=== PATIENT | male | born 1945 | race Caucasian/White ===

== ENCOUNTER 2018-01-03 02:42 | Inpatient (IN) | payer MEDICARE ==
[2018-01-03] VITALS (7 sets, daily range): BP systolic 138–164; BP diastolic 61–82
[~2018-01-03] VITALS: Ht 180.3 cm; Wt 88.5 kg
--- NOTE | ~2018-01-03 | EKG ---
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
--- NOTE | ~2018-01-03 | ST ---
[place], [place] EXERCISE STRESS TEST REPORT [id number] UNIT #: [id number] ROOM: 506 DOCTOR: MCKAYLA PALOMARES MD BIRTHDATE: [birth year] DOS: 01/10/2018 LEXISCAN STRESS EKG REFERRING PHYSICIAN: Dr. Doll. INDICATIONS: Ventricular tachycardia. Baseline EKG is normal sinus with nonspecific ST-T wave changes, diffusely to be inverted T waves. The patient had baseline heart rate of 60 with a blood pressure of 140/80. The patient's peak heart rate was 75 with a blood pressure of 128/80. The patient had no chest pain, no dyspnea, ischemic changes and no arrhythmias were noted. SUMMARY OF FINDINGS: Unremarkable Lexiscan stress EKG. MCKAYLA PALOMARES MD CM:STRESS:EXERCISE STRESS TEST REPORT [id number] MCKAYLA PALOMARES MD
--- NOTE | ~2018-01-03 | CON ---
[place], [place] REPORT OF CONSULTATION NAME: EDIS ARANGO UNIT #: [id number] ROOM: 506 DOCTOR: CALEB MATHUR MD BIRTHDATE: [birth year] DOS: 01/08/2018 REASON FOR CONSULTATION: Ventricular tachycardia. CLINICAL HISTORY: The patient is a 72-year-old gentleman with history of hypertension, tobacco smoking and COPD who was admitted ____ shortness of breath and cough with sputum production. ____ with diagnosis of pneumonia and he was found to have ventricular tachycardia on 01/03/2018 and 01/04/2018. The patient is asymptomatic and Cardiology was consulted for further recommendations. The patient likely has history of noncompliance in the past. He follows with most of the [facility]. He denies any chest pain or palpitations. He only complains of shortness of breath. He still smokes 1 pack a day. Patient has chronic psoriasis, which response to the steroids. Currently, his breathing is better with the current therapy. Denies any chest pain, palpitation or dizziness. No fever or chills. No nausea, vomiting or diarrhea. No orthopnea or PND. No neurologic symptoms. No musculoskeletal symptoms. REVIEW OF SYSTEMS: Review of the 10 system negative except as mentioned above. PAST MEDICAL HISTORY: 1. Hypertension. 2. Psoriasis. 3. Edema. 4. BPH. PAST SURGICAL HISTORY: No significant surgeries. SOCIAL HISTORY: The patient does smoke about a pack a day, does not use alcohol or illicit drugs. FAMILY HISTORY: Father has melanoma. Mother has breast cancer, diabetes. ALLERGIES: No known drug allergies. HOME MEDICATIONS: Reviewed. PHYSICAL EXAMINATION: VITAL SIGNS: Blood pressure 145/83, pulse 70, respiratory rate of 18 and weight 88.4 kilos with a BMI 27.2. GENERAL: Alert, comfortable, in no acute distress. NECK: Supple, no distended neck veins, no carotid bruit. CHEST: Symmetrical, nontender. LUNGS: Few scattered rhonchi. Good air entry bilaterally. HEART: Regular rhythm, no S3. Grade 1/6 systolic murmur. ABDOMEN: Benign, nontender. Bowel sounds normal. EXTREMITIES: Showed 1+ edema. Distal pulses palpable. SKIN: Warm and dry. The patient had multiple psoriatic rash. NEUROLOGIC: The patient is alert, oriented. No focal neurologic deficit. RECTAL: Deferred. GENITOURINARY: Deferred. [place], [place] REPORT OF CONSULTATION NAME: EDIS ARANGO UNIT #: [id number] ROOM: 506 DOCTOR: CALEB MATHUR MD BIRTHDATE: [birth year] REVIEW OF THE DIAGNOSTIC TESTS: EKG showed normal sinus rhythm with anterolateral T inversion. His labs and imaging studies reviewed. White cell count 32293, hemoglobin 15 and platelets 356,000. BUN 38, creatinine 0.96, potassium 3.9. No BNP done. The rhythm strips showed the patient has ____ on 01/03/2018 and a 12-beat nonsustained V-tach on 01/04/2018. IMPRESSION: 1. Nonsustained ventricular tachycardia. 2. Hypertension. 3. Tobacco use. 4. Pneumonia and possible sepsis. 5. Chronic edema. 6. Psoriasis. 7. Abnormal EKG with anterolateral ST-T changes. 8. Acute on chronic respiratory failure. RECOMMENDATIONS: He denies any chest pain. The patient is on metoprolol 25 mg twice a day and the patient had refused to keep his previous medications except today he took his metoprolol. Importance of medications with beta blockers discussed and the patient agreeable to continue take his metoprolol. His magnesium levels are 2.1 on 01/04/2018. Check 2D echo for LV function and valvular function. The patient said he had echo about 6 months ago at [facility] in [place]. We will try to get the report. We would recommend Lexiscan stress test on Wednesday to rule out ischemia due to his nonsustained V-tach and also CAD risk factors. The patient was counseled to quit smoking and the patient was not happy and as stated to discuss his smoking cessation. He will need home oxygen since his O2 saturations are below 90 on acuity. No family at bedside. Continue his current medications include Lasix, Lipitor and metoprolol. Further recommendation based on his echo and a stress test. [place], [place] REPORT OF CONSULTATION NAME: EDIS ARANGO UNIT #: [id number] ROOM: 506 DOCTOR: CALEB MATHUR MD BIRTHDATE: [birth year] CALEB MATHUR MD CM:CONSTR:REPORT OF CONSULTATION 14 01/09/182034 interface
--- NOTE | ~2018-01-03 | EKG ---
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 : 1945 Requested By: VALDEMAR HARRELL Order Number: [id number] Reading MD: Symone Garcia MD Measurements Intervals [place] Rate: 77 P: 85 MT: 117 QRS: 16 QRSD: 104 T: 143 QT: 449 QTc: 509 Interpretive Statements Sinus rhythm Borderline short [place] interval Abnormal R-wave progression, early transition Abnrm T, consider ischemia, anterolateral leads Prolonged QT interval Compared to ECG 01/03/2018 02:54:16 Prolonged QT interval now present Possible ischemia still present Electronically Signed On 01-04-2018 16:07:18 PST by Symone Garcia MD CM:EKGRPT:ELECTROCARDIOGRAM REPORT 1723 1607 VALDEMAR KHAN DRAFT REPORT VALDEMAR HARRELL DO
--- NOTE | ~2018-01-03 | PR ---
[place], [place] PROGRESS NOTE NAME: EDIS ARANGO UNIT #: [id number] ROOM: 506 DOCTOR: CALEB MATHUR MD BIRTHDATE: [birth year] DOS: 01/09/2018 REASON FOR VISIT: Ventricular tachycardia. HISTORY OF PRESENT ILLNESS: The patient denies any chest pain or shortness of breath. No palpitation, no dizziness, no edema, no orthopnea, no PND, no fever and chills. REVIEW OF SYSTEMS: Review of the 10 system negative except as mentioned above. RHYTHM STRIPS: The patient in sinus rhythm. PHYSICAL EXAMINATION: VITAL SIGNS: Blood pressure 130/76, pulse 70, respiratory rate 18, weight 88.4 kilos with a BMI of 27. GENERAL: Alert, comfortable, in no acute distress. NECK: Supple, no distended neck veins, no carotid bruit. CHEST: Symmetrical, nontender. LUNGS: Few scattered rhonchi. Good air entry bilaterally. HEART: Regular rate and rhythm, no S3. Grade 1/6 systolic murmur. ABDOMEN: Benign, nontender. Bowel sounds normal. EXTREMITIES: Showed trace edema. Distal pulses palpable. SKIN: Warm and dry. No cyanosis, no clubbing. RECTAL: Deferred. GENITORECTAL: Deferred. Other medications and labs reviewed. IMPRESSIONS: 1. Ventricular tachycardia, asymptomatic, no further recurrence, normal magnesium levels. 2. Tobacco smoking. 3. Hypertension. 4. Non-morbid obesity. 5. Pneumonia. 6. Chronic obstructive pulmonary disease. 7. Psoriasis. RECOMMENDATIONS: Continue current medication. Lexiscan stress test tomorrow to rule out ischemia due to his ventricular tachycardia and CAD risk factors. A 2D echo was ordered and apparently had echo done at [facility] about 6 months ago and reported request. Risk factor modification to quit smoking, diet, exercise and weight loss discussed. No family at bedside at the time of examination. [place], [place] PROGRESS NOTE NAME: EDIS ARANGO UNIT #: [id number] ROOM: 506 DOCTOR: CALEB MATHUR MD BIRTHDATE: [birth year] CALEB MATHUR MD CM:PNTRANS 16 06 CALEB MATHUR MD 01/09/182107 interface
[2018-01-03 03:04] LABS: HEMOGLOBIN 14.4 g/dl (14.0-18.0); MEAN CELL VOLUME 95.5 fl (80.0-94.0); MEAN CORPUSCULAR HGB 30.6 pg (27.0-31.0); MEAN PLATELET VOLUME 9.9 fl (9.6-12.3); PLATELET COUNT AUTOMATED 302 10*3/uL (130-400); RED BLOOD COUNT 4.71 10*6/uL (4.50-5.90); RED CELL DISTRI WIDTH 13.4 % (0-14.5); WHITE BLOOD COUNT 24.2 10*3/uL (4.8-10.8)
[2018-01-03 03:14] LABS: INTERNATIONAL NORM RATIO 1.2 (2.0-3.5)
[2018-01-03 03:21] LABS: ALBUMIN 2.8 gm/dl (3.1-4.5); ALKALINE PHOSPHATASE 87 U/L (45-117); BUN 14 mg/dl (7-24); CHLORIDE 103 mmol/L (98-107); CREATININE 0.92 mg/dL (0.70-1.30); POTASSIUM 3.8 mmol/L (3.5-5.1); SGOT/AST 13 IU/L (3-35); SGPT/ALT 16 U/L (12-78); SODIUM 139 mmol/L (136-145); TOTAL PROTEIN 8.3 gm/dL (6.4-8.2)
[2018-01-03 03:23] LABS: PLATELET SUFFICIENCY NORMAL (NORMAL); TOTAL CELLS COUNTED 100 #CELLS
[2018-01-03 04:40] LABS: BILIRUBIN 2+ (NEGATIVE); BLOOD 3+ (NEGATIVE); CLARITY CLEAR (CLEAR); COLOR YELLOW (YELLOW); GLUCOSE NEGATIVE (NEGATIVE); KETONE NEGATIVE (NEGATIVE); LEUKO ESTERASE NEGATIVE (NEGATIVE); NITRITE NEGATIVE (NEGATIVE); SPECIFIC GRAVITY >= 1.030 (1.005-1.030); UROBILINOGEN 0.2 E.U./dl (0.2-1.0)
[2018-01-03 04:50] LABS: RBC 16-20 rbc/hpf (0-2)
[2018-01-03] MEDS ORDERED: ACCUNEB 0.1.25 MG/1 INH (10:01)
[2018-01-03] MEDS ORDERED: ALBUTEROL S5 MG/1 ML INH (10:02)
[2018-01-03] MEDS ORDERED: ALENDRONATE SOD35 M1 PO (10:02)
[2018-01-03] MEDS ORDERED: AMMONIUM LACTA385 GM T (10:02)
[2018-01-03] MEDS ORDERED: OTEZLA30 MG PO (10:03)
[2018-01-03] MEDS ORDERED: LIPITOR10 MG PO (10:03)
[2018-01-03] MEDS ORDERED: SYMB160 INH (10:03)
[2018-01-03] MEDS ORDERED: CLOBETASOL EMOL15 GM T (10:04)
[2018-01-03] MEDS ORDERED: VITAMIN D31000 UNI1 PO (10:04)
[2018-01-03] MEDS ORDERED: IBUPROFEN600 MG PO (10:05)
[2018-01-03] MEDS ORDERED: NEURONTIN300 MG PO (10:05)
[2018-01-03] MEDS ORDERED: COL-RITE100 M1 PO (10:05)
[2018-01-03] MEDS ORDERED: LASIX20 MG PO (10:05)
[2018-01-03] MEDS ORDERED: POTASSIUM CHLO10 MEQ PO (10:06)
[2018-01-03] MEDS ORDERED: ACULAR 0.5%3 ML OPH (10:06)
[2018-01-03] MEDS ORDERED: TAMSULOSIN HCL0.4 MG PO (10:07)
[2018-01-03] MEDS ORDERED: VIGAMOX 0.5% 3 M3 ML OPH (10:08)
[2018-01-03] MEDS ORDERED: ECONOPRED PLUS10 M1 OPH (10:09)
[2018-01-03 18:12] LABS: BUN 16 mg/dl (7-24); CHLORIDE 106 mmol/L (98-107); CREATININE 0.91 mg/dL (0.70-1.30); POTASSIUM 4.4 mmol/L (3.5-5.1); SODIUM 139 mmol/L (136-145); TROPONIN I 0.018 ng/ml (<0.045)
[2018-01-04] VITALS: BP 149/81
[2018-01-04 06:50] LABS: BASO % 0.1 % (0.0-1.0); HEMATOCRIT 42.1 % (42.0-52.0); HEMOGLOBIN 13.2 g/dl (14.0-18.0); LYMPH # 1.5 10*3/uL (1.3-4.4); LYMPH % 7.4 % (27.0-41.0); MEAN CELL VOLUME 97.7 fl (80.0-94.0); MEAN CORPUSCULAR HGB 30.6 pg (27.0-31.0); MEAN CORPUSCULAR HGB CONC 31.4 g/dl (33.0-37.0); MEAN PLATELET VOLUME 10.6 fl (9.6-12.3); MONO # 0.8 10*3/uL (0.1-1.0); MONO % 3.9 % (3.0-9.0); PLATELET COUNT AUTOMATED 302 10*3/uL (130-400); RED BLOOD COUNT 4.31 10*6/uL (4.50-5.90); RED CELL DISTRI WIDTH 13.2 % (0-14.5); WHITE BLOOD COUNT 20.4 10*3/uL (4.8-10.8)
[2018-01-04 06:51] LABS: BUN 20 mg/dl (7-24); CHLORIDE 105 mmol/L (98-107); CHOLESTEROL 171 mg/dL (<200); CREATININE 0.89 mg/dL (0.70-1.30); HDL CHOLESTEROL 39 mg/dl (40-60); LDL CHOLESTEROL 110 mg/dL (9-159); PHOSPHOROUS 2.6 mg/dL (2.5-4.9); POTASSIUM 4.4 mmol/L (3.5-5.1); SODIUM 139 mmol/L (136-145); TRIGLYCERIDES 111 mg/dl (<150); VLDL CHOLESTEROL 22 mg/dL (6-40)
[2018-01-04 06:58] LABS: THYROID STIM HORMONE (HS) 0.456 uIU/ml (0.358-4.75)
[2018-01-04 08:00] VITALS: BP 136/80
[2018-01-04 09:05] LABS: VITAMIN D, 25-HYDROXY 20.4 ng/mL (30-100)
[2018-01-04 12:00] VITALS: BP 147/83
[2018-01-04 16:00] VITALS: BP 111/66
[2018-01-04 20:00] VITALS: BP 103/62
[2018-01-05] VITALS: BP 124/69
[2018-01-05 06:43] LABS: BASO % 0.1 % (0.0-1.0); HEMATOCRIT 42.5 % (42.0-52.0); HEMOGLOBIN 13.1 g/dl (14.0-18.0); LYMPH # 1.3 10*3/uL (1.3-4.4); MEAN CELL VOLUME 98.6 fl (80.0-94.0); MEAN CORPUSCULAR HGB 30.4 pg (27.0-31.0); MEAN CORPUSCULAR HGB CONC 30.8 g/dl (33.0-37.0); MEAN PLATELET VOLUME 10.5 fl (9.6-12.3); MONO # 0.5 10*3/uL (0.1-1.0); MONO % 3.7 % (3.0-9.0); NEUT # 12.8 10*3/uL (2.3-7.9); NEUT % 86.5 % (47.0-73.0); PLATELET COUNT AUTOMATED 309 10*3/uL (130-400); RED BLOOD COUNT 4.31 10*6/uL (4.50-5.90); WHITE BLOOD COUNT 14.8 10*3/uL (4.8-10.8)
[2018-01-05 07:04] LABS: ALBUMIN 2.5 gm/dl (3.1-4.5); ALKALINE PHOSPHATASE 83 U/L (45-117); BUN 26 mg/dl (7-24); CHLORIDE 104 mmol/L (98-107); CREATININE 0.95 mg/dL (0.70-1.30); POTASSIUM 4.1 mmol/L (3.5-5.1); SGOT/AST 14 IU/L (3-35); SGPT/ALT 17 U/L (12-78); SODIUM 139 mmol/L (136-145); TOTAL PROTEIN 7.1 gm/dL (6.4-8.2)
[2018-01-05 12:00] VITALS: BP 127/67
[2018-01-05 16:00] VITALS: BP 145/69
[2018-01-05 20:00] VITALS: BP 142/78
[2018-01-06] VITALS: BP 116/57
[2018-01-06 06:35] LABS: BASO % 0.2 % (0.0-1.0); EOS % 0.1 % (1.0-4.0); HEMOGLOBIN 13.2 g/dl (14.0-18.0); LYMPH # 1.2 10*3/uL (1.3-4.4); LYMPH % 9.6 % (27.0-41.0); MEAN CELL VOLUME 97.4 fl (80.0-94.0); MEAN CORPUSCULAR HGB 30.6 pg (27.0-31.0); MEAN CORPUSCULAR HGB CONC 31.4 g/dl (33.0-37.0); MEAN PLATELET VOLUME 10.6 fl (9.6-12.3); MONO # 0.6 10*3/uL (0.1-1.0); MONO % 4.9 % (3.0-9.0); NEUT # 10.3 10*3/uL (2.3-7.9); NEUT % 83.9 % (47.0-73.0); PLATELET COUNT AUTOMATED 300 10*3/uL (130-400); RED BLOOD COUNT 4.31 10*6/uL (4.50-5.90); RED CELL DISTRI WIDTH 12.7 % (0-14.5); WHITE BLOOD COUNT 12.3 10*3/uL (4.8-10.8)
[2018-01-06 06:53] LABS: BUN 26 mg/dl (7-24); CHLORIDE 103 mmol/L (98-107); CREATININE 0.89 mg/dL (0.70-1.30); POTASSIUM 3.9 mmol/L (3.5-5.1); SODIUM 142 mmol/L (136-145)
[2018-01-06 08:00] VITALS: BP 120/62
[2018-01-06 12:00] VITALS: BP 126/64
[2018-01-06 16:00] VITALS: BP 130/61
[2018-01-06 20:00] VITALS: BP 172/89
[2018-01-07] VITALS: BP 172/84
[2018-01-07 06:48] LABS: HEMATOCRIT 45.4 % (42.0-52.0); HEMOGLOBIN 14.5 g/dl (14.0-18.0); MEAN CELL VOLUME 95.4 fl (80.0-94.0); MEAN CORPUSCULAR HGB 30.5 pg (27.0-31.0); MEAN CORPUSCULAR HGB CONC 31.9 g/dl (33.0-37.0); MEAN PLATELET VOLUME 10.2 fl (9.6-12.3); PLATELET COUNT AUTOMATED 348 10*3/uL (130-400); RED BLOOD COUNT 4.76 10*6/uL (4.50-5.90); RED CELL DISTRI WIDTH 12.6 % (0-14.5); WHITE BLOOD COUNT 17.2 10*3/uL (4.8-10.8)
[2018-01-07 06:57] LABS: CHLORIDE 103 mmol/L (98-107); CREATININE 0.89 mg/dL (0.70-1.30); POTASSIUM 4.1 mmol/L (3.5-5.1); SODIUM 140 mmol/L (136-145)
[2018-01-07 06:58] LABS: BUN 23 mg/dl (7-24)
[2018-01-07 07:13] LABS: PLATELET SUFFICIENCY NORMAL (NORMAL); TOTAL CELLS COUNTED 100 #CELLS
[2018-01-07 09:30] VITALS: BP 142/74
[2018-01-07 12:00] VITALS: BP 152/79
[2018-01-07 16:00] VITALS: BP 156/83
[2018-01-07 20:00] VITALS: BP 140/82
[2018-01-08 06:21] LABS: HEMATOCRIT 46.5 % (42.0-52.0); MEAN CELL VOLUME 95.1 fl (80.0-94.0); MEAN CORPUSCULAR HGB 30.7 pg (27.0-31.0); MEAN CORPUSCULAR HGB CONC 32.3 g/dl (33.0-37.0); MEAN PLATELET VOLUME 10.4 fl (9.6-12.3); PLATELET COUNT AUTOMATED 356 10*3/uL (130-400); RED BLOOD COUNT 4.89 10*6/uL (4.50-5.90); RED CELL DISTRI WIDTH 12.7 % (0-14.5); WHITE BLOOD COUNT 21.6 10*3/uL (4.8-10.8)
[2018-01-08 06:47] LABS: BUN 28 mg/dl (7-24); CHLORIDE 99 mmol/L (98-107); CREATININE 0.96 mg/dL (0.70-1.30); POTASSIUM 3.9 mmol/L (3.5-5.1); SODIUM 138 mmol/L (136-145)
[2018-01-08 06:59] LABS: ATYPICAL LYMPHS 1 % (0-0); TOTAL CELLS COUNTED 100 #CELLS
[2018-01-08 07:00] LABS: PLATELET SUFFICIENCY NORMAL (NORMAL)
[2018-01-08 08:00] VITALS: BP 156/87
[2018-01-08 12:00] VITALS: BP 144/83
[2018-01-08 16:00] VITALS: BP 169/81
[2018-01-08 20:00] VITALS: BP 141/88
[2018-01-09] VITALS: BP 131/65
[2018-01-09 08:00] VITALS: BP 138/62
[2018-01-09 12:00] VITALS: BP 130/76
[2018-01-09 16:00] VITALS: BP 146/71
[2018-01-09 20:00] VITALS: BP 132/72
[2018-01-10] VITALS: BP 122/61
[2018-01-10 08:00] VITALS: BP 147/82
[2018-01-10 12:00] VITALS: BP 156/82
[2018-01-10 16:00] VITALS: BP 106/59
[2018-01-10 20:00] VITALS: BP 110/76
[2018-01-11] VITALS: BP 134/56
[2018-01-11 06:41] LABS: MEAN CELL VOLUME 96.3 fl (80.0-94.0); MEAN CORPUSCULAR HGB 30.7 pg (27.0-31.0); MEAN CORPUSCULAR HGB CONC 31.9 g/dl (33.0-37.0); MEAN PLATELET VOLUME 9.9 fl (9.6-12.3); PLATELET COUNT AUTOMATED 311 10*3/uL (130-400); RED BLOOD COUNT 4.88 10*6/uL (4.50-5.90); RED CELL DISTRI WIDTH 13.2 % (0-14.5); WHITE BLOOD COUNT 16.6 10*3/uL (4.8-10.8)
[2018-01-11 06:48] LABS: CREATININE 0.95 mg/dL (0.70-1.30)
[2018-01-11 07:21] LABS: ATYPICAL LYMPHS 5 % (0-0); PLATELET SUFFICIENCY NORMAL (NORMAL); TOTAL CELLS COUNTED 100 #CELLS
[2018-01-11] MEDS ORDERED: FLUCONAZOLE100 MG PO (11:47)
[2018-01-11] MEDS ORDERED: DOXYCYCLINE MO100 M1 PO (11:47)
[2018-01-11] MEDS ORDERED: METOPROLOL SUCC25 M2 PO (11:47)
[2018-01-11] MEDS ORDERED: NATURE'S BLEND F1 MG PO (11:47)
[2018-01-11] MEDS ORDERED: PREDNISONE10 MG PO (11:48)
[2018-01-11] MEDS ORDERED: OXYGEN NAS (11:48)
[2018-01-11 12:00] VITALS: BP 111/57
== END 2018-01-11 16:56 | disposition left against medical advice (07) | DRG 871 ==
LOC: ED 02:42 → EDHOLD 05:50 → 5E 05:50 → EDBEDREQ 06:10 → 5E 06:10
PROVIDERS: Emergency Medicine; Internal Medicine; Podiatrist Primary Podiatric Medicine; Student in an Organized Health Care Education/Training Program
DX: A41.9 Sepsis, unspecified organism (principal); J18.9 Pneumonia, unspecified organism; E43 Unspecified severe protein-calorie malnutrition; J96.20 Acute and chronic respiratory failure, unspecified whether with hypoxia or hypercapnia; E87.2 Acidosis; I47.2 Ventricular tachycardia; R65.20 Severe sepsis without septic shock; F17.210 Nicotine dependence, cigarettes, uncomplicated; J43.9 Emphysema, unspecified; H26.9 Unspecified cataract; B96.20 Unspecified Escherichia coli [E. coli] as the cause of diseases classified elsewhere; L40.0 Psoriasis vulgaris; R33.9 Retention of urine, unspecified; N40.1 Benign prostatic hyperplasia with lower urinary tract symptoms; I11.9 Hypertensive heart disease without heart failure; R31.9 Hematuria, unspecified; E66.01 Morbid (severe) obesity due to excess calories; R73.9 Hyperglycemia, unspecified; G62.9 Polyneuropathy, unspecified; R39.16 Straining to void; Z53.29 Procedure and treatment not carried out because of patient's decision for other reasons; Z79.899 Other long term (current) drug therapy; Z83.3 Family history of diabetes mellitus; Z80.3 Family history of malignant neoplasm of breast; Z80.8 Family history of malignant neoplasm of other organs or systems; Z71.6 Tobacco abuse counseling; Z68.27 Body mass index [BMI] 27.0-27.9, adult

== ENCOUNTER 2018-02-21 14:39 | Inpatient (IN) | payer MEDICARE ==
[~2018-02-21] VITALS: Ht 180.3 cm; Wt 87.8 kg
--- NOTE | ~2018-02-21 | EKG ---
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 : 1945 Requested By: JACK ROMANO Order Number: [id number] Reading MD: Wayne Márquez MD Measurements Intervals [place] Rate: 71 P: 63 GA: 117 QRS: 7 QRSD: 101 T: 145 QT: 437 QTc: 475 Interpretive Statements Atrial fibrillation, irregular rate Borderline short [place] interval Abnormal R-wave progression, early transition Repol abnrm, prob ischemia, anterolateral lds Baseline wander in lead(s) V1,V3 Sinus rhythm has replaced atrial fibrillation Electronically Signed On 02-23-2018 10:32:52 PST by Wayne Márquez MD CM:EKGRPT:ELECTROCARDIOGRAM REPORT 0713 1032 JACK KHAN DRAFT REPORT JACK ROMANO DO
--- NOTE | ~2018-02-21 | EKG ---
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 Banegas : 1945 Requested By: KENDALL APPIAH Order Number: [id number] Reading MD: Wayne Márquez MD Measurements Intervals [place] Rate: 85 P: 13 TX: 116 QRS: 8 QRSD: 111 T: 131 QT: 418 QTc: 497 Interpretive Statements Sinus rhythm Borderline short [place] interval Abnormal R-wave progression, early transition Repol abnrm suggests ischemia, anterolateral Compared to ECG 01/03/2018 17:23:31 Prolonged QT interval no longer present Possible ischemia still present Electronically Signed On 02-22-2018 16:53:55 PST by Wayne Márquez MD CM:EKGRPT:ELECTROCARDIOGRAM REPORT 1501 1653 KENDALL WHITNEY DRAFT REPORT KENDALL APPIAH MD
--- NOTE | ~2018-02-21 | EKG ---
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 : 1945 Requested By: JACK ROMANO Order Number: [id number] Reading MD: Wayne Márquez MD Measurements Intervals [place] Rate: 81 P: 68 NH: 119 QRS: 23 QRSD: 100 T: 149 QT: 422 QTc: 490 Interpretive Statements Sinus rhythm Ventricular premature complex Borderline short [place] interval Abnormal R-wave progression, early transition Repol abnrm, prob ischemia, anterolateral lds Baseline wander in lead(s) V6 Compared to earlier ECG this date Normal sinus rhythm has replaced atrial fibrillation Electronically Signed On 02-23-2018 10:29:58 PST by Wayne Márquez MD CM:EKGRPT:ELECTROCARDIOGRAM REPORT 0425 1029 JACK KHAN DRAFT REPORT JACK ROMANO DO
--- NOTE | ~2018-02-21 | EKG ---
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
--- NOTE | ~2018-02-21 | EKG ---
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 Hayes : 1945 Requested By: STEVENSON PAREDES Order Number: [id number] Reading MD: Wayne Márquez MD Measurements Intervals [place] Rate: 73 P: 77 [place]: 118 QRS: 33 QRSD: 105 T: 145 QT: 423 QTc: 466 Interpretive Statements Sinus rhythm Borderline short [place] interval Abnormal R-wave progression, early transition Repol abnrm suggests ischemia, anterolateral Compared to ECG 02/21/2018 15:01:18 Possible ischemia still present Sinus rhythm has replaced atrial fibrillation Electronically Signed On 02-23-2018 11:07:37 PST by Wayne Márquez MD CM:EKGRPT:ELECTROCARDIOGRAM REPORT 0932 1107 STEVENSON KHAN DRAFT REPORT STEVENSON PAREDES DO
[~2018-02-21 14:39] MED LIST: ACCUNEB 0.1.25 MG/1 INH; ACULAR 0.5%3 ML OPH; ALBUTEROL S5 MG/1 ML INH; ALENDRONATE SOD35 M1 PO; AMMONIUM LACTA385 GM T; CLOBETASOL EMOL15 GM T; COL-RITE100 M1 PO; DOXYCYCLINE MO100 M1 PO; ECONOPRED PLUS10 M1 OPH; FLUCONAZOLE100 MG PO; IBUPROFEN600 MG PO; LASIX20 MG PO; LIPITOR10 MG PO; METOPROLOL SUCC25 M2 PO; NATURE'S BLEND F1 MG PO; NEURONTIN300 MG PO; OTEZLA30 MG PO; OXYGEN NAS; POTASSIUM CHLO10 MEQ PO; PREDNISONE10 MG PO; TAMSULOSIN HCL0.4 MG PO; VIGAMOX 0.5% 3 M3 ML OPH; VITAMIN D31000 UNI1 PO
[2018-02-21 14:42] VITALS: BP 145/78
[2018-02-21 15:13] LABS: BASO # 0.1 10*3/uL (0.0-0.1); BASO % 0.7 % (0.0-1.0); EOS # 0.2 10*3/uL (0.0-0.4); EOS % 1.8 % (1.0-4.0); HEMATOCRIT 43.9 % (42.0-52.0); HEMOGLOBIN 14.4 g/dl (14.0-18.0); LYMPH # 1.3 10*3/uL (1.3-4.4); LYMPH % 12.7 % (27.0-41.0); MEAN CELL VOLUME 95.4 fl (80.0-94.0); MEAN CORPUSCULAR HGB 31.3 pg (27.0-31.0); MEAN CORPUSCULAR HGB CONC 32.8 g/dl (33.0-37.0); MEAN PLATELET VOLUME 10.2 fl (9.6-12.3); MONO # 0.6 10*3/uL (0.1-1.0); MONO % 5.8 % (3.0-9.0); NEUT # 8.1 10*3/uL (2.3-7.9); NEUT % 78.5 % (47.0-73.0); PLATELET COUNT AUTOMATED 269 10*3/uL (130-400); RED CELL DISTRI WIDTH 14.2 % (0-14.5); WHITE BLOOD COUNT 10.3 10*3/uL (4.8-10.8)
[2018-02-21 15:22] VITALS: BP 150/78
[2018-02-21 15:34] LABS: ALBUMIN 2.8 gm/dl (3.1-4.5); ALKALINE PHOSPHATASE 84 U/L (45-117); BUN 17 mg/dl (7-24); CHLORIDE 107 mmol/L (98-107); CREATININE 0.95 mg/dL (0.70-1.30); POTASSIUM 3.5 mmol/L (3.5-5.1); SGOT/AST 16 IU/L (3-35); SGPT/ALT 21 U/L (12-78); SODIUM 145 mmol/L (136-145); TROPONIN I 0.029 ng/ml (<0.045)
[2018-02-21 15:56] LABS: ACT PARTIAL THROMBO TIME 21.1 SECONDS (20.8-31.5)
[2018-02-21 16:00] VITALS: BP 169/72
[2018-02-21 16:08] VITALS: BP 133/73
[2018-02-21 16:22] VITALS: BP 144/81
[2018-02-21] MEDS ORDERED: PROVENTIL HFA6.7 GM INH (17:42)
[2018-02-21] MEDS ORDERED: IBUPROFEN600 MG PO (17:42)
[2018-02-21 20:00] VITALS: BP 138/70; BP 89/70
[2018-02-21 21:58] LABS: BILIRUBIN NEGATIVE (NEGATIVE); BLOOD 3+ (NEGATIVE); CLARITY SL CLOUDY (CLEAR); COLOR YELLOW (YELLOW); GLUCOSE 1+ (NEGATIVE); KETONE NEGATIVE (NEGATIVE); LEUKO ESTERASE NEGATIVE (NEGATIVE); NITRITE NEGATIVE (NEGATIVE); PH 5.5 (5.0-9.0); SPECIFIC GRAVITY >= 1.030 (1.005-1.030); UROBILINOGEN 0.2 E.U./dl (0.2-1.0)
[2018-02-21 22:08] LABS: BACTERIA 2+; EPITHELIAL CELLS 0-2; MUCOUS TRACE; RBC TNTC rbc/hpf (0-2); YEAST TRACE
[2018-02-22] VITALS: BP 120/46; BP 120/60
[2018-02-22 07:01] LABS: BASO % 0.2 % (0.0-1.0); HEMATOCRIT 39.2 % (42.0-52.0); HEMOGLOBIN 12.7 g/dl (14.0-18.0); LYMPH # 0.7 10*3/uL (1.3-4.4); MEAN CELL VOLUME 95.6 fl (80.0-94.0); MEAN CORPUSCULAR HGB CONC 32.4 g/dl (33.0-37.0); MEAN PLATELET VOLUME 10.4 fl (9.6-12.3); MONO # 0.2 10*3/uL (0.1-1.0); MONO % 1.8 % (3.0-9.0); NEUT # 8.3 10*3/uL (2.3-7.9); NEUT % 89.6 % (47.0-73.0); PLATELET COUNT AUTOMATED 260 10*3/uL (130-400); WHITE BLOOD COUNT 9.3 10*3/uL (4.8-10.8)
[2018-02-22 07:10] LABS: ALBUMIN 2.4 gm/dl (3.1-4.5); ALKALINE PHOSPHATASE 73 U/L (45-117); BUN 16 mg/dl (7-24); CHLORIDE 107 mmol/L (98-107); CREATININE 0.96 mg/dL (0.70-1.30); PHOSPHOROUS 1.9 mg/dL (2.5-4.9); SGOT/AST 11 IU/L (3-35); SGPT/ALT 19 U/L (12-78); SODIUM 144 mmol/L (136-145); TOTAL PROTEIN 6.2 gm/dL (6.4-8.2)
[2018-02-22 07:16] LABS: THYROID STIM HORMONE (HS) 0.171 uIU/ml (0.358-4.75)
[2018-02-22 08:10] VITALS: BP 124/64
[2018-02-22 08:17] LABS: VITAMIN D, 25-HYDROXY 14.5 ng/mL (30-100)
[2018-02-22 12:00] VITALS: BP 122/71
[2018-02-22 16:00] VITALS: BP 118/62
[2018-02-22 20:00] VITALS: BP 116/47
[2018-02-22 22:00] VITALS: BP 116/47
[2018-02-23 04:18] VITALS: BP 152/87
[2018-02-23 06:02] LABS: BUN 22 mg/dl (7-24); CHLORIDE 108 mmol/L (98-107); CREATININE 0.92 mg/dL (0.70-1.30); PHOSPHOROUS 3.5 mg/dL (2.5-4.9); POTASSIUM 4.3 mmol/L (3.5-5.1); SODIUM 145 mmol/L (136-145)
[2018-02-23] MEDS ORDERED: NICODERM T (07:12)
[2018-02-23] MEDS ORDERED: AVPAK AZITHROM250 M1 PO (07:12)
[2018-02-23] MEDS ORDERED: SOLU-MEDRO40 MG/1 ML IV (07:12)
[2018-02-23 08:00] VITALS: BP 134/86
[2018-02-23 12:00] VITALS: BP 170/100
[2018-04-30] MEDS ORDERED: ELIQUIS2.5 M1 PO (05:32)
[2018-04-30] MEDS ORDERED: DILTIAZEM 24HR180 MG PO (05:33)
[2018-05-03] MEDS ORDERED: TRAMADOL HCL50 MG PO (09:19)
[2018-05-03] MEDS ORDERED: LASIX40 MG PO ×2 (09:19)
== END 2018-02-23 13:37 | disposition short-term general hospital (02) | DRG 871 ==
LOC: ED 14:39 → 5E 16:26 → EDHOLD 16:26 → 5E 16:35 → ICCU 02-23 04:13
PROVIDERS: Emergency Medicine; Student in an Organized Health Care Education/Training Program; ADMIT Internal Medicine
PROC: 3E073KZ Introduction of Other Diagnostic Substance into Coronary Artery, Percutaneous Approach (ICD-10-PCS; principal; 2018-02-23)
PROC: 4A02XM4 Measurement of Cardiac Total Activity, External Approach (ICD-10-PCS; principal; 2018-02-23)
DX: A41.9 Sepsis, unspecified organism (principal); J18.9 Pneumonia, unspecified organism; J96.01 Acute respiratory failure with hypoxia; E43 Unspecified severe protein-calorie malnutrition; J44.1 Chronic obstructive pulmonary disease with (acute) exacerbation; E87.2 Acidosis; J44.0 Chronic obstructive pulmonary disease with (acute) lower respiratory infection; I47.1 Supraventricular tachycardia; R65.20 Severe sepsis without septic shock; R73.9 Hyperglycemia, unspecified; D75.89 Other specified diseases of blood and blood-forming organs; Z71.6 Tobacco abuse counseling; H26.9 Unspecified cataract; G62.9 Polyneuropathy, unspecified; I11.9 Hypertensive heart disease without heart failure; K59.00 Constipation, unspecified; N40.0 Benign prostatic hyperplasia without lower urinary tract symptoms; L40.9 Psoriasis, unspecified; F17.210 Nicotine dependence, cigarettes, uncomplicated; Z79.899 Other long term (current) drug therapy; Z80.8 Family history of malignant neoplasm of other organs or systems; Z83.3 Family history of diabetes mellitus; Z68.26 Body mass index [BMI] 26.0-26.9, adult

== ENCOUNTER 2018-04-10 09:52 | Inpatient (IN) | payer MEDICARE ==
[~2018-04-10] VITALS: Ht 180.3 cm; Wt 90.0 kg
--- NOTE | ~2018-04-10 | EKG ---
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 : 1945 Requested By: JUAN ANTONIO PAREDES Order Number: [id number] Reading MD: Wil Knight MD Measurements Intervals [place] Rate: 82 P: 6 [place]: 120 QRS: 3 QRSD: 94 T: 103 QT: 405 QTc: 473 Interpretive Statements Sinus rhythm Abnormal R-wave progression, early transition Nonspecific T abnrm, anterolateral leads Baseline wander in lead(s) V6 Compared to ECG 02/23/2018 09:32:01 Early repolarization no longer present Possible ischemia no longer present Electronically Signed On 04-15-2018 9:36:30 PST by Wil Knight MD CM:EKGRPT:ELECTROCARDIOGRAM REPORT 1003 0936 JUAN ANTONIO KHAN DRAFT REPORT JUAN ANTONIO PAREDES DO
--- NOTE | ~2018-04-10 | PR ---
[place], [place] PROGRESS NOTE NAME: EDIS ARANGO UNIT #: [id number] ROOM: 405 DOCTOR: HAILEY GOSS MD BIRTHDATE: [birth year] DOS: 04/12/2018 SUBJECTIVE: He has been noted with reduction in symptoms of shortness of breath. The edema of the lower extremities also improving. There were no symptoms of chest pain, fever or chills. Denies symptoms of hemoptysis. Denies symptoms of nausea. OBJECTIVE: VITAL SIGNS: Normal temperature, respiratory rate 16, heart rate 73, blood pressure 150/70-130/63. The pulse oxygen saturation recorded as 95% saturation on 3 liters nasal cannula. HEENT: Examination shows head was atraumatic. Eyes nonicterus. NECK: Supple. CARDIOVASCULAR: S1, S2 audible. LUNGS: Noted with moderate reduction in breath sounds bilaterally. EXTREMITIES: Noted resolving edema of the lower extremities. LABORATORY DATA: CBC of this morning, WBC count 14.5, hemoglobin 13.2, platelet count was normal. CMP this morning, normal BUN and creatinine, glucose 241. IMPRESSION: 1. The patient who has been currently treated for acute exacerbation of chronic obstructive pulmonary disease. 2. Chronic hypoxic respiratory failure. 3. Congestive heart failure, diastolic dysfunction. 4. Psoriasis of the skin. 5. Long-term nicotine use. PLAN OF MANAGEMENT: The dose of steroids will be decreased. Influenza A and B, nasal washing antigen which were tested previously were noted negative. The viral panel was also ordered that remains pending. Diuretic therapy to be continued. Intake for the patient needs to be monitored closely. Other therapy, plan of management, care plan for the patient. Additional treatment changes will be made based on progression of illness. [place], [place] PROGRESS NOTE NAME: EDIS ARANGO UNIT #: [id number] ROOM: 405 DOCTOR: HAILEY GOSS MD BIRTHDATE: [birth year] HAILEY GUNDERSON MD CM:PNTRANS 1057 1444 HAILEY MACKENZIE MD 04/20/18 1014 interface
--- NOTE | ~2018-04-10 | EKG ---
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
--- NOTE | ~2018-04-10 | CON ---
[place], [place] REPORT OF CONSULTATION NAME: EDIS ARANGO UNIT #: [id number] ROOM: 405 DOCTOR: JUDAH PHD MARTHA BIRTHDATE: [birth year] DOS: 04/12/2018 HISTORY OF PRESENT ILLNESS: The patient is a 72-year-old male referred by the hospitalist for competency evaluation at the present time. The patient is on the 4th floor at [facility]. He is twice and has one son. He served in the [employer] for nearly 4 years during [employer], but did not go to [employer]. 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 He denied alcohol and illegal drug use, but is a current smoker with no intention of quitting. PAST MEDICAL HISTORY: BPH, cataracts, constipation, COPD, essential hypertension, macrocytosis without anemia, neuropathy, normocytic anemia, NSTEMI, peripheral edema, severe protein-calorie malnutrition, psoriasis, SVT. MEDICATIONS: Solu-Medrol, Colace, Neurontin, Lipitor, Pulmicort Respules, Ventolin, Colace, Flomax, Bumex, Lovenox, Protonix, Mucinex, DuoNeb, Zofran, Tylenol, Restoril, [place] 5/325. NEUROLOGIC EXAMINATION: The patient was awake, alert and oriented to person, place and generally to time. He can name the president and the past president. He could spell world forwards and backwards. He completed one correct serial 7 subtraction. Mood was irritable and affect was restricted in range. Speech and language appeared within normal limits conversationally. Thought process was linear and goal directed. Thought content was negative for hallucinations or delusions. The patient was able to speak in depths about his medical condition, medical history and reasons for declining medical treatment. He states that he feels upset about the amount of medications he is on, which he finds and he wants to only take ones he thinks are absolutely necessary. There was no evidence of confusion. He spoke about frustration with adjustment to disability issues. DIAGNOSIS: Unspecified depressive disorder. RECOMMENDATIONS: In my opinion, this patient is competent to make informed health care decisions. Thank you very much for this consult. Fabiola Gordon, PhD CM:CONSTR:REPORT OF CONSULTATION 1646 04/13/18 0614 interface
--- NOTE | ~2018-04-10 | PR ---
[place], [place] PROGRESS NOTE NAME: EDIS ARANGO UNIT #: [id number] ROOM: 405 DOCTOR: JALYN MACKENZIE MD,HAILEY BIRTHDATE: [birth year] DOS: 04/13/2018 PULMONARY PROGRESS NOTE SUBJECTIVE: He continues to show reduction of the respiratory symptom including edema of the lower extremities. Denies symptoms of chest pain. There was no coughing or any sputum expectoration. OBJECTIVE: VITAL SIGNS: For the patient which were recorded showed the temperature noted as normal. The respiratory rate recorded as 20, heart rate 81, blood pressure 151/80. Pulse oxygen saturation on 3 liters nasal cannula 94% saturation. HEENT: Examination shows head was atraumatic. Eyes nonicterus. NECK: Supple. CARDIOVASCULAR: S1, S2 is audible. LUNGS: Without any wheeze or crackles. ABDOMEN: Soft, nontender, bowel sounds present. EXTREMITIES: Continued progressive resolution of edema of upper and lower extremities. IMPRESSION: 1. Improving acute respiratory symptom with exacerbation of chronic obstructive pulmonary disease as well as congestive heart failure, progressive. 2. History of skin psoriasis which was noted extensive. PLAN OF MANAGEMENT: No changes in the plan for the patient at this time. Continuation of the current therapy for this patient as in progress. Usual care. Supportive plan of treatment. DISCHARGE PLANNING: The patient has been started on discharge on oral tapering prednisone and other medication as necessary post discharge. [facility]. HAILEY GUNDERSON MD CM:PNTRANS [id number] HAILEY MACKENZIE MD 04/14/18 005 interface
--- NOTE | ~2018-04-10 | EKG ---
[place], [place] ELECTROCARDIOGRAM REPORT NAME: EDIS ARANGO UNIT #: [id number] ROOM: 405 DOCTOR: CHELO DRAFT REPORT BIRTHDATE: [birth year] [facility] Test Date: 2018-04-10 Test Time: 12:36:15 Pat Name: EDIS ARANGO Department: Room: 405 Gender: M Entertainment Usher: Saloni Hess : 1945 Requested By: JUAN ANTONIO PAREDES Order Number: [id number] Reading MD: Wil Knight MD Measurements Intervals [place] Rate: 80 P: 64 VT: 122 QRS: -3 QRSD: 97 T: 97 QT: 445 QTc: 514 Interpretive Statements Sinus rhythm Abnormal R-wave progression, early transition Borderline repolarization abnormality Prolonged QT interval Compared to ECG 02/23/2018 09:32:01 Prolonged QT interval now present Possible ischemia no longer present Electronically Signed On 04-15-2018 9:36:59 PST by Wil Knight MD CM:EKGRPT:ELECTROCARDIOGRAM REPORT [id number] 0936 JUAN ANTONIO KHAN DRAFT REPORT JUAN ANTONIO PAREDES DO
--- NOTE | ~2018-04-10 | EKG ---
[place], [place] ELECTROCARDIOGRAM REPORT NAME: EDIS ARANGO UNIT #: [id number] ROOM: 405 DOCTOR: CHELO DRAFT REPORT BIRTHDATE: [birth year] [facility] Test Date: 2018-04-13 Test Time: 07:00:26 Pat Name: EDIS ARANGO Department: Room: 405 1 Gender: M Last Picker: [id number] : 1945 Requested By: JESSICA LAMBERT Order Number: [id number] Reading MD: Wil Knight MD Measurements Intervals [place] Rate: 67 P: 41 MO: 119 QRS: 2 QRSD: 99 T: 125 QT: 418 QTc: 442 Interpretive Statements Sinus rhythm Borderline short MO interval Abnormal R-wave progression, early transition Repol abnrm suggests ischemia, anterolateral Compared to ECG 02/23/2018 09:32:01 No significant changes Electronically Signed On 04-15-2018 9:47:22 PST by Wil Knight MD CM:EKGRPT:ELECTROCARDIOGRAM REPORT 0700 0947 JESSICA KHAN DRAFT REPORT JESSICA LAMBERT DO
--- NOTE | ~2018-04-10 | CON ---
[place], [place] REPORT OF CONSULTATION NAME: EDIS ARANGO UNIT #: [id number] ROOM: 405 DOCTOR: JALYN MACKENZIE MDHAILEY BIRTHDATE: [birth year] DOS: 04/11/2018 PULMONARY CONSULTATION EVALUATION AND MANAGEMENT REASON FOR CONSULTATION: Assess the patient for acute pneumonia. HISTORY OF PRESENT ILLNESS: This is a 72-year-old white male patient who has been admitted to the hospital under hospitalist service on 04/10/2018. The patient reported with having symptoms of increased shortness of breath, which has been occurring past 3 days. He was also noted for progressive edema of the lower extremity and other parts of the body as well. The symptoms of shortness of breath was noted significantly progressive occurring with minimal exertion. He was also reporting symptoms of cough without sputum expectoration, wheezing at times. The patient denies symptoms of fever or chills. He has been taking his oxygen supplementation on a long-term basis as well and has been on past diagnosis of COPD as well. REVIEW OF SYSTEMS: CONSTITUTIONAL: General weakness, fatigue were reported. Denies symptoms of fever or chills. EYES: Denied burning, redness, or tenderness. EARS, NOSE, AND THROAT: Denies sore throat, hoarseness, otalgia, postnasal drainage or epistaxis. CARDIOVASCULAR: Denies angina pain, which has noted edema of the upper and the lower extremities. Denies symptoms of palpitations. GASTROINTESTINAL: No dysphagia, nausea, vomiting, abdominal pain, diarrhea, or abnormal weight loss. GENITOURINARY SYMPTOMS: Denies dysuria, suprapubic pain or hematuria. SKIN: Noted with history of severe psoriasis of the skin with multiple plaques related to psoriasis are noted. EXTREMITIES: The patient with some skin breakdown as well in certain parts of the body. MUSCULOSKELETAL: Denies any joint pain or any deformities. CENTRAL NERVOUS SYSTEM: Denies headache, diplopia, or syncopal episodes. Remaining systems were reviewed. They were noted all negative. HOME MEDICATIONS: 1. Reported as use of Otezla 30 mg b.i.d., AccuNeb 1.25 mg q.i.d. 2. Symbicort 160/4.5 two puffs b.i.d. 3. Neurontin 300 mg p.o. t.i.d., and oxygen supplementation 3 liters nasal cannula continuous use. FAMILY HISTORY: The patient's father with known history of melanoma and suicide. The mother with complication related to breast cancer and known with history of diabetes mellitus as well. SOCIAL HISTORY: He is , has one child, lives at home. Tobacco use was noted at younger age, 2 packs of cigarettes per day, stated not smoking cigarettes for the past one week. [place], [place] REPORT OF CONSULTATION NAME: EDIS ARANGO UNIT #: [id number] ROOM: 405 DOCTOR: JALYN MACKENZIE MD,HAILEY BIRTHDATE: [birth year] CURRENT MEDICATIONS: Flomax, Bumex 2 mg IV b.i.d., Solu-Medrol 80 mg b.i.d., Mucinex 1200 mg p.o. b.i.d., DuoNeb q.6h. and other p.r.n. medications. DRUG ALLERGY HISTORY: Reported as no known drug allergies. PHYSICAL EXAMINATION: GENERAL: A 72-year-old white male patient is currently lying in the bed without acute distress this morning of assessment, using oxygen supplementation nasal cannula. Height of 5 feet 11 inches, weight of 200 pounds, BMI 27.9. VITAL SIGNS: The patient normal temperature since admission, respiratory rate 18-22, heart rate 73-94, blood pressure 112/58-163/82. Intake for the patient of 840, output were not documented. The pulse oxygen saturation recorded as 97% saturation on 3 liters nasal cannula. HEENT: Head was atraumatic. Eyes nonicterus. NECK: Supple. CARDIOVASCULAR: S1, S2 is audible. LUNGS: The patient was noted with moderate decreased breath sounds with scattered crackles and wheezing of the lungs bilaterally. ABDOMEN: Soft, nontender. Bowel sounds present. EXTREMITIES: The patient was noted with sacral edema of the upper and lower extremities, multiple areas of psoriasis and patches for this patient noted as well as some denudation of the skin was noted with superficial ulcers. LABORATORY DATA: CBC that was done on 04/10/2018 WBC count 12.7, hemoglobin and hematocrit normal, platelet count normal. PT/PTT was noted as normal. Lactic acid of 2.4. The patient on admission follow up 2.0. The CMP that was done on 04/10/2018, normal BUN and creatinine. Troponin was normal. Second set and third set of troponin yesterday was noted as normal. BNP was elevated 1392. IMAGING STUDIES: Chest x-ray done on this admission, the patient noted with mild increased pulmonary venous markings without any gross area of pulmonary infiltration, pleural fluid or others. A CT scan of the chest that was done yesterday without contrast was also reviewed. There was no evidence of pleural fluid, any abnormal pulmonary infiltration. Central lobar emphysema changes noted in the upper lung consistent with history of tobacco use. There were no abnormal lymphadenopathy. IMPRESSION: 1. The patient will be currently admitted to the hospital noted with symptoms and finding consistent with chronic hypoxic respiratory failure and acute exacerbation of chronic obstructive pulmonary disease associated with acute congestive heart failure, diastolic dysfunction. The echocardiogram for the patient that was done on last year, noted with left ventricle ejection fraction 70% at that time. 2. History of severe psoriasis involving the skin multi-superficial area with superficial acute inflammatory changes or superimposed bacterial infection can be completely excluded. 3. History of long-term nicotine abuse. [place], [place] REPORT OF CONSULTATION NAME: EDIS ARANGO UNIT #: [id number] ROOM: 405 DOCTOR[facility] [birth year] PLAN OF MANAGEMENT: The patient does not have any symptoms or findings consistent with acute pneumonia at this present time. He has been getting intravenous antibiotic, which are broad spectrum were discontinued. Possible viral etiology, resulting in acute exacerbation would be considered. The viral assessment will be ordered for the influenza infection as well as other viral panel for will be ordered on nasopharyngeal swab. If the patient does expectorate sputum, certainly could be sent for the Gram stain and culture. Monitor respiratory status closely. Use of antibiotic if the patient showing manifestation signs of acute bacterial infection. Continue diuretic therapy with IV Bumex as well as monitoring of the edema for the patient's resolution closely. Other supportive therapy, plan of management care for the patient at this time. Usual care, other supportive plan of management and treatment bronchodilators to be continued. Solu-Medrol currently given at high dose 80 mg b.i.d., the dose will be decreased to 40 mg b.i.d. starting tomorrow based on further improvement in the respiratory status. ADDENDUM: PAST MEDICAL HISTORY: 1. Longstanding COPD. 2. Chronic hypoxic respiratory failure, use of oxygen supplementation 3 liters nasal cannula. 3. Coronary artery disease with recent myocardial infarction, acute coronary intervention. 4. Chronic dementia. 5. History of psoriasis of the skin. 6. Benign prostatic hypertrophy. HAILEY GUNDERSON MD CM:CONSTR:REPORT OF CONSULTATION 1209 04/30/18 2250 interface
[~2018-04-10 09:52] MED LIST changes: +AVPAK AZITHROM250 M1 PO; +NICODERM T; +PROVENTIL HFA6.7 GM INH; +SOLU-MEDRO40 MG/1 ML IV
[2018-04-10 10:10] VITALS: BP 163/82
[2018-04-10 10:12] LABS: BASO # 0.1 10*3/uL (0.0-0.1); BASO % 0.9 % (0.0-1.0); EOS # 0.7 10*3/uL (0.0-0.4); EOS % 5.4 % (1.0-4.0); HEMATOCRIT 44.4 % (42.0-52.0); HEMOGLOBIN 14.2 g/dl (14.0-18.0); LYMPH # 2.8 10*3/uL (1.3-4.4); MEAN CELL VOLUME 95.9 fl (80.0-94.0); MEAN CORPUSCULAR HGB 30.7 pg (27.0-31.0); MEAN PLATELET VOLUME 10.1 fl (9.6-12.3); MONO # 0.8 10*3/uL (0.1-1.0); MONO % 6.2 % (3.0-9.0); NEUT # 8.2 10*3/uL (2.3-7.9); PLATELET COUNT AUTOMATED 300 10*3/uL (130-400); RED BLOOD COUNT 4.63 10*6/uL (4.50-5.90); WHITE BLOOD COUNT 12.7 10*3/uL (4.8-10.8)
[2018-04-10 10:20] LABS: ACT PARTIAL THROMBO TIME 23.2 SECONDS (20.8-31.5); INTERNATIONAL NORM RATIO 1.1 (2.0-3.5)
[2018-04-10 10:42] LABS: ALBUMIN 3.1 gm/dl (3.1-4.5); ALKALINE PHOSPHATASE 97 U/L (45-117); BUN 14 mg/dl (7-24); CHLORIDE 104 mmol/L (98-107); CREATININE 1.03 mg/dL (0.70-1.30); POTASSIUM 3.6 mmol/L (3.5-5.1); SGOT/AST 12 IU/L (3-35); SGPT/ALT 16 U/L (12-78); SODIUM 142 mmol/L (136-145); TOTAL PROTEIN 7.7 gm/dL (6.4-8.2)
[2018-04-10 10:43] LABS: TROPONIN I 0.034 ng/ml (<0.045)
[2018-04-10 11:17] VITALS: BP 145/68
--- NOTE | 2018-04-10 11:38 | NUR ---
WOUNDS: NONE. HOWEVER, PT DOES HAVE EXTENSIVE PSORIASIS LESIONS COVERING HIS ENTIRE UPPER BODY TORSO AND ARMS AND LEGS WHICH ARE CHRONIC AND HALFWAY AND IN VARIOUS STATES OF GRANULATION. HE DECLINES CLOSER EXAMINATION AND STATES "I HAVE BEEN ADMITTED HERE MANY TIMES AND THEY HAVE NEVER ASKED ME ABOUT MY PSORIASIS".
--- NOTE | 2018-04-10 13:28 | NUR ---
[place] 72, admitted to , under the services of JESSICA Hinson DO with a diagnosis of CELLULITIS, SEVERE SEPSIS, COPD . Chief complaint is INCREASED SOB. Patient arrived via wheel chair from ER. Monitor applied. Initial assessment completed. Vital signs taken and recorded. JESSICA HINSON DO notified of admission to the unit. Orders received. See assessment for past medical history, medications and allergies. Patient and/or family oriented to unit. [facility] visitation policy reviewed. Clothing/patient valuable form completed. DELORIS DIAZ
--- NOTE | 2018-04-10 13:45 | NUR ---
PATIENT REFUSING DOCUMENTATION/PICTURES OF ARMS AND LEGS. PATIENT HAS CHRONIC PSORIASIS.
--- NOTE | 2018-04-10 14:51 | NUR ---
UNABLE TO VERIFY PATIENT'S MEDICATIONS. [facility]. PATIENT DOES NOT KNOW LIST OF HOME MEDS.
--- NOTE | 2018-04-10 14:54 | NUR ---
NOTIFIED OF CONSULT.
--- NOTE | 2018-04-10 14:57 | NUR ---
'S ANSWERING SERVICE NOTIFIED OF CONSULT.
--- NOTE | 2018-04-10 15:46 | NUR ---
CT CALLED REGARDING PATIENT'S REFUSAL OF DYE. NOTIFIED AND WILL BE UP TO FLOOR TO TALK TO THE PATIENT.
--- NOTE | 2018-04-10 15:50 | NUR ---
IN TO SEE PATIENT.
[2018-04-10 16:00] VITALS: BP 154/98
--- NOTE | 2018-04-10 17:40 | NUR ---
NOTIFIED REGARDING PATIENT'S REFUSAL OF LABS AND CT.
--- NOTE | 2018-04-10 18:24 | NUR ---
PT REQUESTED PO NORCO PER PRN ORDER FOR C/O BILATERAL FEET PAIN. RATES PAIN 10/10. WILL MONITOR EFFECTIVENESS.
--- NOTE | 2018-04-10 19:10 | NUR ---
PT ASLEEP AT THIS TIME. REPORT RECIEVED. BED IS LOW, CALL LIGHT WITHIN REACH. WILL CONTINUE TO MONITOR.
[2018-04-10 20:00] VITALS: BP 131/51
--- NOTE | 2018-04-10 20:09 | NUR ---
24 HOUR CHART CHECK COMPLETE.
--- NOTE | 2018-04-10 20:19 | NUR ---
NO COUGH EFFORT WITH SPUTUM INDUCTION
--- NOTE | 2018-04-10 20:48 | NUR ---
PT OFF THE FLOOR FOR CT
--- NOTE | 2018-04-10 21:13 | NUR ---
PT RETURNED FROM CT
[2018-04-11] VITALS: BP 112/58
[2018-04-11 06:08] LABS: HEMATOCRIT 44.3 % (42.0-52.0); HEMOGLOBIN 14.1 g/dl (14.0-18.0); MEAN CELL VOLUME 96.9 fl (80.0-94.0); MEAN CORPUSCULAR HGB 30.9 pg (27.0-31.0); MEAN CORPUSCULAR HGB CONC 31.8 g/dl (33.0-37.0); MEAN PLATELET VOLUME 10.5 fl (9.6-12.3); PLATELET COUNT AUTOMATED 325 10*3/uL (130-400); RED BLOOD COUNT 4.57 10*6/uL (4.50-5.90); RED CELL DISTRI WIDTH 13.8 % (0-14.5); WHITE BLOOD COUNT 11.8 10*3/uL (4.8-10.8)
[2018-04-11 06:41] LABS: ALKALINE PHOSPHATASE 91 U/L (45-117); BUN 14 mg/dl (7-24); CHLORIDE 105 mmol/L (98-107); CREATININE 1.07 mg/dL (0.70-1.30); POTASSIUM 4.2 mmol/L (3.5-5.1); SGOT/AST 11 IU/L (3-35); SGPT/ALT 16 U/L (12-78); SODIUM 142 mmol/L (136-145); TOTAL PROTEIN 7.6 gm/dL (6.4-8.2)
[2018-04-11 06:47] LABS: BASOPHILS 1 % (0-1); PLATELET SUFFICIENCY NORMAL (NORMAL); TOTAL CELLS COUNTED 100 #CELLS
--- NOTE | 2018-04-11 07:38 | NUR ---
EDIS ARANGO [id number] Please refer to the physician's history and physical for past medical history, comorbid conditions, and allergies. Diagnosis: SEVERE SEPSIS COPD EXACERBATION PNEUMONITIS Iván Score: 17,AT RISK WOUND DESCRIPTIONS: Red, scaly silver color patches noted to patient's bilateral arms, legs, buttocks, back, and abdomen. Patient stated during his last admission after they gave him steroids that the areas were healed when he was discharged home. Scant amount of serosanguineous drainage noted to several areas. [facility] and is no longer taking the medication that he was prescribed for his psoriasis because he states the ointment or creams either burn or the pills just don't work. Patient stated he is using aqauphor twice and day and that is helping. Surface the patient is resting on: Isoflex SKIN PREVENTION RECOMMENDATION: 1. Pressure redistribution support surface as appropriate 2. Elevate heels 3. Remove boots/TEDS every shift and reapply 4. Head of bed 30 degrees as tolerated 5. Assess nutrition and hydration 6. Manage moisture 7. Avoid the use of containment devices while in bed 8. Use absorptive products on surfaces limit layers of linens on bed 9. Turn and reposition every 1-2 hours in bed and every 1 hour in chair as tolerated 10. Weight shifts every 15 minutes while up in chair 11. Offloading with pillows or device to keep heels elevated off bed 12. Monitor skin at least every shift 13. Inspect under medical devices twice a day WOUND TREATMENT RECOMMENDATIONS: Cleanse bilateral arm, legs, back, buttocks and abdomen with soap and water pat area dry then apply aquaphor ointment BID. per patient request he states he will not use anything else that is ordered beside aqauphor.
[2018-04-11 08:00] VITALS: BP 141/69
--- NOTE | 2018-04-11 08:57 | NUR ---
Dr. oH notified of wound care recommendations.
--- NOTE | 2018-04-11 09:05 | NUR ---
patient refusing echo. stated that he had a recent heart cath.
--- NOTE | 2018-04-11 09:37 | NUR ---
NOTIFIED DR. LYNN PATIENT IS REFUSING ECHO AT THIS TIME.
--- NOTE | 2018-04-11 11:03 | NUR ---
[facility]ING [facility] MEDICATIONS LIST.
[2018-04-11 12:00] VITALS: BP 152/79
[2018-04-11] MEDS ORDERED: HYDROPHILIC113 GM TD (14:23)
[2018-04-11] MEDS ORDERED: WAL-PROFEN200 MG PO (14:25)
[2018-04-11] MEDS ORDERED: LIPITOR10 MG PO (14:26)
[2018-04-11] MEDS ORDERED: NEURONTIN300 MG PO (14:27)
[2018-04-11] MEDS ORDERED: ALENDRONATE SOD35 M1 PO (14:29)
[2018-04-11] MEDS ORDERED: OTEZLA30 MG PO (14:30)
[2018-04-11] MEDS ORDERED: AMMONIUM LACTA385 GM T (14:30)
[2018-04-11] MEDS ORDERED: FLOMAX0.4 MG PO (14:32)
[2018-04-11] MEDS ORDERED: REFRESH TEARS15 ML OP (14:35)
[2018-04-11] MEDS ORDERED: CLOBETASOL PROP15 GM T (14:37)
[2018-04-11] MEDS ORDERED: DOCUSATE SODIU100 M2 PO (14:38)
[2018-04-11] MEDS ORDERED: LASIX20 MG PO (14:39)
[2018-04-11] MEDS ORDERED: POTASSIUM CHLO10 ME5 PO (14:39)
[2018-04-11] MEDS ORDERED: ANTIFUNGAL30 GM T (14:41)
[2018-04-11] MEDS ORDERED: UREA85 G1 T (14:43)
[2018-04-11] MEDS ORDERED: SYMB160 INH (14:44)
--- NOTE | 2018-04-11 14:54 | NUR ---
NOTIFIED DR. LYNN PATIENT REFUSED TB GOLD TEST AND ULTRASOUND OF LEGS.
--- NOTE | 2018-04-11 15:18 | NUR ---
Document Advisor in to talk to patient. Patient states lives at home with alone. There are few steps in the home. Physician: [facility] Pharmacy: [facility] Home health services: none Patient's level of ADLs: BEDFAST Patient has working utilities: all working DME: none Follow-up physician's appointment after d/c: will be made by [facility] nurse director upon discharge Does patient want to access PORTAL?: no Discharge plan discussed with patient, patient lives at home alone, he states he has family memebers that check on him and get whatever he needs, patient states he will be going back home when able. discussed with him [facility] and he declines any services at this time, case management will follow. HERMILA CHAMBERLAIN
[2018-04-11 15:57] VITALS: BP 137/85
--- NOTE | 2018-04-11 19:03 | NUR ---
NOTIFIED [facility] OF NEW CONSULT
[2018-04-11 20:00] VITALS: BP 134/74
--- NOTE | 2018-04-11 21:00 | NUR ---
SITTING AT BEDSIDE, NO ACUTE DISTRESS NOTED. MULTIPLE COMPLAINTS. RESPIRATIONS EASY. LUNGS DIMINISHED WITH PB RALES. PULSE OX 96% 3L. INFREQUENT NON-PRODUCTIVE COUGH. +1 BLE EDEMA. OFFERED AND EDUCATED REGARDING TEDS, DECLINED. PSORIASIS RASH NOTED OVER ENTIRE BODY. CALL LIGHT WITHIN REACH.
--- NOTE | 2018-04-11 22:00 | NUR ---
REFUSED BUMEX AT THIS TIME. ALSO REFUSING LAMISIL STATING "IT ARTIS"
[2018-04-12] VITALS: BP 130/63
--- NOTE | 2018-04-12 00:30 | NUR ---
SLEEPING, AWAKENS EASILY. BUMEX GIVEN AT THIS TIME.
--- NOTE | 2018-04-12 00:30 | NUR ---
24 HR chart check completed.
--- NOTE | 2018-04-12 02:00 | NUR ---
SLEEPING. O2 IN USE. BED ALARM MAINTAINED
--- NOTE | 2018-04-12 05:20 | NUR ---
REQUESTED AND RECEIVED MORCO PER PRN ORDER FOR COMPLAINTS OF GENERALIZED ACHES RATING A 7. CALL LIGHT WITHIN REACH. WILL MONITOR FOR EFFECTIVENESS
[2018-04-12 06:01] LABS: BASO % 0.2 % (0.0-1.0); HEMATOCRIT 41.1 % (42.0-52.0); HEMOGLOBIN 13.2 g/dl (14.0-18.0); LYMPH % 6.7 % (27.0-41.0); MEAN CELL VOLUME 96.7 fl (80.0-94.0); MEAN CORPUSCULAR HGB 31.1 pg (27.0-31.0); MEAN CORPUSCULAR HGB CONC 32.1 g/dl (33.0-37.0); MONO # 0.4 10*3/uL (0.1-1.0); MONO % 2.9 % (3.0-9.0); NEUT % 89.6 % (47.0-73.0); PLATELET COUNT AUTOMATED 313 10*3/uL (130-400); RED BLOOD COUNT 4.25 10*6/uL (4.50-5.90); RED CELL DISTRI WIDTH 13.5 % (0-14.5); WHITE BLOOD COUNT 14.5 10*3/uL (4.8-10.8)
[2018-04-12 06:08] LABS: ALBUMIN 2.9 gm/dl (3.1-4.5); BUN 18 mg/dl (7-24); CHLORIDE 102 mmol/L (98-107); POTASSIUM 3.7 mmol/L (3.5-5.1); SODIUM 140 mmol/L (136-145)
[2018-04-12 06:13] LABS: ALKALINE PHOSPHATASE 91 U/L (45-117); CREATININE 1.13 mg/dL (0.70-1.30); PHOSPHOROUS 3.3 mg/dL (2.5-4.9); SGOT/AST 5 IU/L (3-35); SGPT/ALT 14 U/L (12-78); TOTAL PROTEIN 7.3 gm/dL (6.4-8.2)
--- NOTE | 2018-04-12 06:45 | NUR ---
EARLIER MEDS APPEAR EFFECTIVE. SLEEPING. RESPIRATIONS EASY. CALL LIGHT WITHIN REACH
[2018-04-12 07:38] VITALS: BP 150/70
--- NOTE | 2018-04-12 07:40 | NUR ---
Recommend follow up for wound care in outpatient setting patient refused at this time.
--- NOTE | 2018-04-12 07:48 | NUR ---
ASSESSMENT COMPLETE. PT. SITTING UP IN BED. NO PAIN/COMPLAINTS AT THIS TIME. KELLY ANDREWS.RCC
--- NOTE | 2018-04-12 09:00 | NUR ---
case management visits with patient, discussed with him a discharge plan, patient stated he would be going home when able, also discussed with him [facility]. patient didn't feel that he needed any home services at this time, case management will follow
--- NOTE | 2018-04-12 10:38 | NUR ---
IV DRESSING IS NOT STICKING WELL/SOILED. ATTEMPTED TO CLEANSE/REAPPLY BUT PT. REFUSED. KELLY HANN.RCC
[2018-04-12 11:28] VITALS: BP 127/82
--- NOTE | 2018-04-12 11:31 | NUR ---
PT. SITTING UP IN BED, NO COMPLAINTS/ PAIN AT THIS TIME. REPORT GIVEN TO [place]. KELLY ANDREWS.RCC
--- NOTE | 2018-04-12 11:44 | NUR ---
DR SO HERE TO SEE PT.
[2018-04-12 16:00] VITALS: BP 124/57
--- NOTE | 2018-04-12 19:00 | NUR ---
PT AWAKE IN BED DURING BEDSIDE SHIFT REPORT. PT STATES HE DOES NOT WISH TO HAVE ANY MORE TESTS OR BLOOD WORK DONE. PT TEACHNG GIVEN. CALL LIGHT IN REACH.
[2018-04-12 20:00] VITALS: BP 93/49
[2018-04-13] VITALS: BP 137/67
[2018-04-13 04:00] VITALS: BP 143/86
--- NOTE | 2018-04-13 04:16 | NUR ---
PT MEDICATED W/NORCO FOR C/O RT SIDE CHEST PAIN 03/27. PT DESCRIBES INDIGESTION. PT STATES IT DOES NOT FEEL LIKE A HEART ATTACK LIKE HE PREVIOUSLY HAD. WILL MONITOR FOR EFFECTIVENESS.
--- NOTE | 2018-04-13 05:27 | NUR ---
24 HR chart check completed.
[2018-04-13 06:08] LABS: BASO % 0.1 % (0.0-1.0); HEMOGLOBIN 14.9 g/dl (14.0-18.0); LYMPH # 1.5 10*3/uL (1.3-4.4); LYMPH % 6.9 % (27.0-41.0); MEAN CELL VOLUME 97.7 fl (80.0-94.0); MEAN CORPUSCULAR HGB 30.7 pg (27.0-31.0); MEAN CORPUSCULAR HGB CONC 31.4 g/dl (33.0-37.0); MEAN PLATELET VOLUME 10.6 fl (9.6-12.3); MONO # 1.1 10*3/uL (0.1-1.0); MONO % 5.1 % (3.0-9.0); NEUT # 18.7 10*3/uL (2.3-7.9); NEUT % 87.4 % (47.0-73.0); PLATELET COUNT AUTOMATED 396 10*3/uL (130-400); RED BLOOD COUNT 4.86 10*6/uL (4.50-5.90); RED CELL DISTRI WIDTH 13.5 % (0-14.5); WHITE BLOOD COUNT 21.4 10*3/uL (4.8-10.8)
[2018-04-13 06:18] LABS: CHLORIDE 97 mmol/L (98-107); CREATININE 1.34 mg/dL (0.70-1.30); POTASSIUM 3.4 mmol/L (3.5-5.1); SODIUM 139 mmol/L (136-145)
[2018-04-13 06:21] LABS: BUN 28 mg/dl (7-24); HEMATOCRIT 47.5 % (42.0-52.0)
--- NOTE | 2018-04-13 06:38 | NUR ---
PT CONTINUES TO C/O RIGHT LOWER CHEST PAIN DESCRIBES STABBING. STAT EKG AND TROPONIN ORDERED. DR. SPARKS NOTIFIED.
[2018-04-13 08:00] VITALS: BP 151/80
[2018-04-13] MEDS ORDERED: PREDNISONE10 MG PO (08:51)
--- NOTE | 2018-04-13 09:17 | NUR ---
case management visits with patient, patient is being discharged today. medication scripts are being sent to the hospital pharmacy, called pharmacy to check on norman of medication. medication will cost $4. asked patient if he was able to afford this and he stated he was. patient denies any other home needs at this time
--- NOTE | 2018-04-13 11:45 | NUR ---
MSDIS Discharge instructions reviewed with patient/family. Patient receptive and verbalizes understanding. Follow-up care arranged. Written instructions given to patient/family. DONALD GUZMÁN
[2018-04-14 03:10] LABS: ADENOVIRUS Negative (Negative); INFLUENZA A Negative (Negative); INFLUENZA B Negative (Negative); METAPNEUMOVIRUS Negative (Negative); PARAINFLUENZA 1 Negative (Negative); PARAINFLUENZA 2 Negative (Negative); PARAINFLUENZA 3 Negative (Negative); RHINOVIRUS Negative (Negative); RSV A Negative (Negative); RSV B Negative (Negative)
[2018-04-30] MEDS ORDERED: ELIQUIS2.5 M1 PO (05:32)
[2018-04-30] MEDS ORDERED: DILTIAZEM 24HR180 MG PO (05:33)
[2018-05-03] MEDS ORDERED: TRAMADOL HCL50 MG PO (09:19)
[2018-05-03] MEDS ORDERED: LASIX40 MG PO ×2 (09:19)
== END 2018-04-13 11:45 | disposition home or self-care (01) | DRG 871 ==
LOC: ED 09:52 → EDHOLD 12:34 → 4E 12:34 → 5E 12:36 → EDHOLD 12:40 → 4E 12:44
PROVIDERS: Emergency Medicine; Internal Medicine Critical Care Medicine; Internal Medicine Nephrology; ADMIT Internal Medicine
DX: A41.9 Sepsis, unspecified organism (principal); I50.31 Acute diastolic (congestive) heart failure; E44.0 Moderate protein-calorie malnutrition; L03.116 Cellulitis of left lower limb; L03.115 Cellulitis of right lower limb; J96.11 Chronic respiratory failure with hypoxia; J44.1 Chronic obstructive pulmonary disease with (acute) exacerbation; G62.9 Polyneuropathy, unspecified; N39.43 Post-void dribbling; L40.9 Psoriasis, unspecified; R73.9 Hyperglycemia, unspecified; N40.1 Benign prostatic hyperplasia with lower urinary tract symptoms; F32.9 Major depressive disorder, single episode, unspecified; F17.210 Nicotine dependence, cigarettes, uncomplicated; I34.0 Nonrheumatic mitral (valve) insufficiency; H54.61 Unqualified visual loss, right eye, normal vision left eye; I11.0 Hypertensive heart disease with heart failure; D64.9 Anemia, unspecified; R65.20 Severe sepsis without septic shock; Z99.81 Dependence on supplemental oxygen; Z79.899 Other long term (current) drug therapy; Z80.3 Family history of malignant neoplasm of breast; Z83.3 Family history of diabetes mellitus; Z98.41 Cataract extraction status, right eye; Z98.42 Cataract extraction status, left eye; I25.2 Old myocardial infarction; Z71.6 Tobacco abuse counseling; Z91.19 Patient's noncompliance with other medical treatment and regimen

== ENCOUNTER 2018-05-05 16:15 | Inpatient (IN) | payer MEDICARE ==
[~2018-05-05] VITALS: Ht 180.3 cm; Wt 84.5 kg
--- NOTE | ~2018-05-05 | EKG ---
[place], [place] ELECTROCARDIOGRAM REPORT NAME: EDIS ARANGO UNIT #: [id number] ROOM: 528 DOCTOR: CHELO DRAFT REPORT BIRTHDATE: [birth year] [facility] Test Date: 2018-05-05 Test Time: 16:19:43 Pat Name: EDIS ARANGO Department: Room: 528 Gender: M Exchange Operator: : 1945 Requested By: JUAN ANTONIO PAREDES Order Number: [id number] Reading MD: Wil Knight MD Measurements Intervals [place] Rate: 79 P: -55 MN: 106 QRS: 25 QRSD: 99 T: 108 QT: 401 QTc: 460 Interpretive Statements Sinus or ectopic atrial rhythm,Short MN interval,Abnormal R-wave progression, early transition,Repol abnrm suggests ischemia, diffuse leads ST elevation, consider inferior injury,Compared to ECG 04/30/2018 11:18:29 Ectopic atrial rhythm now present Short MN interval now present Early repolarization now present ST (T wave) deviation now present Myocardial infarct finding now present Sinus rhythm no longer present Possible ischemia still present Electronically Signed On 05-06-2018 13:48:14 PDT by Wil Knight MD CM:EKGRPT:ELECTROCARDIOGRAM REPORT 1619 1348 JUAN ANTONIO KHAN DRAFT REPORT JUAN ANTONIO PAREDES DO
--- NOTE | ~2018-05-05 | EKG ---
[place], [place] ELECTROCARDIOGRAM REPORT NAME: EDIS ARANGO UNIT #: [id number] ROOM: 528 DOCTOR: CHELO DRAFT REPORT BIRTHDATE: [birth year] [facility] Test Date: 2018-05-05 Test Time: 19:18:52 Pat Name: EDIS ARANGO Department: Room: 528 Gender: M Long Term Care Administrator: Wayne Mercado : 1945 Requested By: JUAN ANTONIO PAREDES Order Number: [id number] Reading MD: Wil Knight MD Measurements Intervals [place] Rate: 75 P: -54 MA: 105 QRS: 12 QRSD: 102 T: 99 QT: 378 QTc: 423 Interpretive Statements Sinus or ectopic atrial rhythm Short MA interval Abnormal T, consider ischemia, lateral leads ST elevation, consider inferior injury Compared to ECG 04/30/2018 11:18:29 Ectopic atrial rhythm now present Short MA interval now present T-wave abnormality now present ST (T wave) deviation now present Myocardial infarct finding now present Sinus rhythm no longer present Possible ischemia still present Electronically Signed On 05-06-2018 13:48:46 PDT by Wil Knight MD CM:EKGRPT:ELECTROCARDIOGRAM REPORT 17 1348 JUAN ANTONIO KHAN DRAFT REPORT JUAN ANTONIO PAREDES DO
--- NOTE | ~2018-05-05 | EKG ---
[place], [place] ELECTROCARDIOGRAM REPORT NAME: EDIS ARANGO UNIT #: [id number] ROOM: 528 DOCTOR: CHELO DRAFT REPORT BIRTHDATE: [birth year] [facility] Test Date: 2018-05-05 Test Time: 22:05:57 Pat Name: EDIS ARANGO Department: Room: 528 Gender: M Division Plant Engineer: Wayne Mercado : 1945 Requested By: JUAN ANTONIO PAREDES Order Number: [id number] Reading MD: Wil Knight MD Measurements Intervals [place] Rate: 72 P: -64 NC: 113 QRS: 25 QRSD: 108 T: 109 QT: 406 QTc: 445 Interpretive Statements Sinus or ectopic atrial rhythm Borderline short NC interval Abnormal R-wave progression, early transition Abnrm T, consider ischemia, anterolateral lds ST elevation, consider inferior injury Compared to ECG 04/30/2018 11:18:29 Ectopic atrial rhythm now present ST (T wave) deviation now present Myocardial infarct finding now present Sinus rhythm no longer present Possible ischemia still present Electronically Signed On 05-06-2018 13:50:02 PDT by Wil Knight MD CM:EKGRPT:ELECTROCARDIOGRAM REPORT 1350 JUAN ANTONIO KHAN DRAFT REPORT JUAN ANTONIO PAREDES DO
[~2018-05-05 16:15] MED LIST changes: +ANTIFUNGAL30 GM T; +CLOBETASOL PROP15 GM T; +DILTIAZEM 24HR180 MG PO; +DOCUSATE SODIU100 M2 PO; +ELIQUIS2.5 M1 PO; +FLOMAX0.4 MG PO; +HYDROPHILIC113 GM TD; +LASIX40 MG PO; +POTASSIUM CHLO10 ME5 PO; +REFRESH TEARS15 ML OP; +SYMB160 INH; +TRAMADOL HCL50 MG PO; +UREA85 G1 T; +WAL-PROFEN200 MG PO
[2018-05-05 16:24] VITALS: BP 123/64
[2018-05-05 16:30] LABS: BASO % 0.2 % (0.0-1.0); EOS # 0.3 10*3/uL (0.0-0.4); EOS % 1.8 % (1.0-4.0); HEMATOCRIT 49.7 % (42.0-52.0); HEMOGLOBIN 15.9 g/dl (14.0-18.0); LYMPH # 1.7 10*3/uL (1.3-4.4); LYMPH % 11.8 % (27.0-41.0); MEAN CELL VOLUME 97.1 fl (80.0-94.0); MEAN CORPUSCULAR HGB 31.1 pg (27.0-31.0); MEAN PLATELET VOLUME 10.1 fl (9.6-12.3); MONO # 0.9 10*3/uL (0.1-1.0); MONO % 5.8 % (3.0-9.0); NEUT # 11.6 10*3/uL (2.3-7.9); NEUT % 79.2 % (47.0-73.0); PLATELET COUNT AUTOMATED 220 10*3/uL (130-400); RED BLOOD COUNT 5.12 10*6/uL (4.50-5.90); RED CELL DISTRI WIDTH 13.3 % (0-14.5); WHITE BLOOD COUNT 14.6 10*3/uL (4.8-10.8)
[2018-05-05 16:52] LABS: ALBUMIN 3.2 gm/dl (3.1-4.5); ALKALINE PHOSPHATASE 89 U/L (45-117); BUN 39 mg/dl (7-24); CHLORIDE 99 mmol/L (98-107); CREATININE 1.21 mg/dL (0.70-1.30); POTASSIUM 4.1 mmol/L (3.5-5.1); SGOT/AST 11 IU/L (3-35); SGPT/ALT 21 U/L (12-78); SODIUM 140 mmol/L (136-145); TOTAL PROTEIN 7.5 gm/dL (6.4-8.2)
[2018-05-05 17:00] VITALS: BP 111/64
[2018-05-05 17:01] LABS: TROPONIN I 0.094 ng/ml (<0.045)
[2018-05-05 17:14] LABS: ACT PARTIAL THROMBO TIME 19.6 SECONDS (20.8-31.5)
[2018-05-05 17:30] VITALS: BP 117/70
[2018-05-05 18:00] VITALS: BP 125/64
[2018-05-05 20:55] VITALS: BP 127/70
[2018-05-06] VITALS: BP 110/62
[2018-05-06 06:14] LABS: HEMATOCRIT 45.8 % (42.0-52.0); HEMOGLOBIN 14.3 g/dl (14.0-18.0); MEAN CELL VOLUME 96.8 fl (80.0-94.0); MEAN CORPUSCULAR HGB 30.2 pg (27.0-31.0); MEAN CORPUSCULAR HGB CONC 31.2 g/dl (33.0-37.0); MEAN PLATELET VOLUME 10.5 fl (9.6-12.3); PLATELET COUNT AUTOMATED 183 10*3/uL (130-400); RED BLOOD COUNT 4.73 10*6/uL (4.50-5.90); RED CELL DISTRI WIDTH 13.1 % (0-14.5); WHITE BLOOD COUNT 8.9 10*3/uL (4.8-10.8)
[2018-05-06 06:46] LABS: BUN 39 mg/dl (7-24); CHLORIDE 96 mmol/L (98-107); PHOSPHOROUS 4.8 mg/dL (2.5-4.9); POTASSIUM 4.4 mmol/L (3.5-5.1); SODIUM 137 mmol/L (136-145)
[2018-05-06 07:37] LABS: ATYPICAL LYMPHS 1 % (0-0); PLATELET SUFFICIENCY NORMAL (NORMAL); TOTAL CELLS COUNTED 100 #CELLS
[2018-05-06 09:49] VITALS: BP 148/80
[2018-05-06 12:00] VITALS: BP 144/77
[2018-05-06 16:00] VITALS: BP 139/74
[2018-05-06 20:00] VITALS: BP 117/52
[2018-05-07] VITALS: BP 131/67
[2018-05-07 08:00] VITALS: BP 143/78
[2018-05-07 12:00] VITALS: BP 138/86
[2018-05-07 14:00] VITALS: BP 138/86
[2018-05-07 16:00] VITALS: BP 147/94
[2018-05-07 20:00] VITALS: BP 116/46
[2018-05-08] VITALS: BP 134/55
[2018-05-08 07:22] LABS: CREATININE 1.45 mg/dL (0.70-1.30); POTASSIUM 4.9 mmol/L (3.5-5.1)
[2018-05-08 08:00] VITALS: BP 166/70
[2018-05-08 12:00] VITALS: BP 134/53
[2018-05-08 15:55] LABS: BILIRUBIN NEGATIVE (NEGATIVE); BLOOD 3+ (NEGATIVE); CLARITY CLOUDY (CLEAR); COLOR RED (YELLOW); GLUCOSE 3+ (NEGATIVE); KETONE NEGATIVE (NEGATIVE); LEUKO ESTERASE NEGATIVE (NEGATIVE); NITRITE NEGATIVE (NEGATIVE); UROBILINOGEN 0.2 E.U./dl (0.2-1.0)
[2018-05-08 16:00] VITALS: BP 144/70
[2018-05-08 16:29] LABS: RBC TNTC rbc/hpf (0-2)
[2018-05-08 20:00] VITALS: BP 136/43
[2018-05-09] VITALS: BP 105/67; BP 132/55
[2018-05-09 06:35] LABS: BASO % 0.1 % (0.0-1.0); HEMATOCRIT 47.2 % (42.0-52.0); HEMOGLOBIN 15.2 g/dl (14.0-18.0); LYMPH # 0.9 10*3/uL (1.3-4.4); LYMPH % 6.7 % (27.0-41.0); MEAN CORPUSCULAR HGB 30.6 pg (27.0-31.0); MEAN CORPUSCULAR HGB CONC 32.2 g/dl (33.0-37.0); MEAN PLATELET VOLUME 10.6 fl (9.6-12.3); MONO # 0.9 10*3/uL (0.1-1.0); MONO % 6.2 % (3.0-9.0); NEUT % 85.7 % (47.0-73.0); PLATELET COUNT AUTOMATED 216 10*3/uL (130-400); RED BLOOD COUNT 4.97 10*6/uL (4.50-5.90); RED CELL DISTRI WIDTH 12.8 % (0-14.5)
[2018-05-09 06:48] LABS: BUN 44 mg/dl (7-24); CHLORIDE 94 mmol/L (98-107); CREATININE 1.33 mg/dL (0.70-1.30); POTASSIUM 4.6 mmol/L (3.5-5.1); SODIUM 135 mmol/L (136-145)
[2018-05-09 08:00] VITALS: BP 118/60
[2018-05-09 12:00] VITALS: BP 140/68
[2018-05-09] MEDS ORDERED: PREDNISONE10 MG PO (12:07)
[2018-05-09] MEDS ORDERED: LASIX40 MG PO (12:07)
== END 2018-05-09 15:05 | disposition home or self-care (01) | DRG 189 ==
LOC: ED 16:15 → EDHOLD 19:00 → 5E 19:00
PROVIDERS: Emergency Medicine; Internal Medicine; Internal Medicine Nephrology; ADMIT Internal Medicine
DX: J96.01 Acute respiratory failure with hypoxia (principal); J44.1 Chronic obstructive pulmonary disease with (acute) exacerbation; E44.0 Moderate protein-calorie malnutrition; I24.8 Other forms of acute ischemic heart disease; I50.32 Chronic diastolic (congestive) heart failure; I25.10 Atherosclerotic heart disease of native coronary artery without angina pectoris; E11.36 Type 2 diabetes mellitus with diabetic cataract; F17.210 Nicotine dependence, cigarettes, uncomplicated; N40.0 Benign prostatic hyperplasia without lower urinary tract symptoms; G89.29 Other chronic pain; E11.40 Type 2 diabetes mellitus with diabetic neuropathy, unspecified; D75.89 Other specified diseases of blood and blood-forming organs; K59.00 Constipation, unspecified; L40.9 Psoriasis, unspecified; E11.65 Type 2 diabetes mellitus with hyperglycemia; M54.9 Dorsalgia, unspecified; E83.41 Hypermagnesemia; E66.3 Overweight; I11.0 Hypertensive heart disease with heart failure; Z99.81 Dependence on supplemental oxygen; Z98.41 Cataract extraction status, right eye; Z83.3 Family history of diabetes mellitus; Z80.3 Family history of malignant neoplasm of breast; I25.2 Old myocardial infarction; Z98.42 Cataract extraction status, left eye; Z79.4 Long term (current) use of insulin; Z91.19 Patient's noncompliance with other medical treatment and regimen; Z79.01 Long term (current) use of anticoagulants; Z71.6 Tobacco abuse counseling; Z68.27 Body mass index [BMI] 27.0-27.9, adult

== ENCOUNTER 2018-10-31 03:52 | Inpatient (IN) | payer MEDICARE ==
[~2018-10-31] VITALS: Ht 180.3 cm; Wt 85.8 kg
--- NOTE | ~2018-10-31 | EKG ---
[place], [place] ELECTROCARDIOGRAM REPORT NAME: EDIS ARANGO UNIT #: [id number] ROOM: 407 DOCTOR: CHELO DRAFT REPORT BIRTHDATE: [birth year] [facility] Test Date: 2018-10-31 Test Time: 03:58:35 Pat Name: EDIS ARANGO Department: Room: 407 Gender: M Car Chaser: : 1945 Requested By: YON JOVEL Order Number: [id number] Reading MD: Abena Barnes Measurements Intervals [place] Rate: 69 P: 47 RI: 122 QRS: 8 QRSD: 105 T: 113 QT: 446 QTc: 478 Interpretive Statements Sinus rhythm Abnormal R-wave progression, early transition Anterolateral ST/T changes Compared to ECG 05/05/2018 22:05:57 Ectopic atrial rhythm no longer present ST (T wave) deviation no longer present Myocardial infarct finding no longer present Possible ischemia still present Electronically Signed On 10-31-2018 11:59:08 PDT by Abena Barnes CM:EKGRPT:ELECTROCARDIOGRAM REPORT 0358 1159 YON KHAN DRAFT REPORT YON JOVEL DO
--- NOTE | ~2018-10-31 | EKG ---
[place], [place] ELECTROCARDIOGRAM REPORT NAME: EDIS ARANGO UNIT #: [id number] ROOM: 407 DOCTOR: CHELO DRAFT REPORT BIRTHDATE: [birth year] [facility] Test Date: 2018-10-31 Test Time: 06:27:14 Pat Name: EDIS ARANGO Department: Room: 407 Gender: M Dispatcher Service Chief: Saloni Hess : 1945 Requested By: YON JOVEL Order Number: [id number] Reading MD: Abena Barnes Measurements Intervals [place] Rate: 71 P: 65 IN: 122 QRS: 0 QRSD: 99 T: 125 QT: 448 QTc: 487 Interpretive Statements Sinus rhythm Abnormal R-wave progression, early transition Abnrm T, consider ischemia, anterolateral leads Baseline wander in lead(s) V5 Compared to ECG 05/05/2018 22:05:57 Ectopic atrial rhythm no longer present ST (T wave) deviation no longer present Myocardial infarct finding no longer present Possible ischemia still present Electronically Signed On 10-31-2018 12:00:10 PDT by Abena Barnes CM:EKGRPT:ELECTROCARDIOGRAM REPORT 0627 1200 YON KHAN DRAFT REPORT YON JOVEL DO
--- NOTE | ~2018-10-31 | EKG ---
[place], [place] ELECTROCARDIOGRAM REPORT NAME: EDIS ARANGO UNIT #: [id number] ROOM: 407 DOCTOR: CHELO DRAFT REPORT BIRTHDATE: [birth year] [facility] Test Date: 2018-10-31 Test Time: 09:25:44 Pat Name: EDIS ARANGO Department: Room: 407 Gender: M Textile Conversion Manager: Saloni Hess : 1945 Requested By: YON JOVEL Order Number: [id number] Reading MD: Abena Barnes Measurements Intervals [place] Rate: 74 P: 56 IN: 118 QRS: 16 QRSD: 93 T: 90 QT: 419 QTc: 465 Interpretive Statements Sinus rhythm Borderline short [place] interval Abnormal R-wave progression, early transition Borderline repolarization abnormality Compared to ECG 05/05/2018 22:05:57 Ectopic atrial rhythm no longer present Possible ischemia no longer present ST (T wave) deviation no longer present Myocardial infarct finding no longer present Electronically Signed On 10-31-2018 12:00:56 PDT by Abena Barnes CM:EKGRPT:ELECTROCARDIOGRAM REPORT 0925 1200 YON KHAN DRAFT REPORT YON JOVEL DO
[2018-10-31 04:10] VITALS: BP 144/86
[2018-10-31 04:16] LABS: BASO # 0.1 10*3/uL (0.0-0.1); BASO % 0.9 % (0.0-1.0); EOS # 0.6 10*3/uL (0.0-0.4); EOS % 4.5 % (1.0-4.0); HEMOGLOBIN 12.9 g/dl (14.0-18.0); LYMPH # 2.2 10*3/uL (1.3-4.4); LYMPH % 15.5 % (27.0-41.0); MEAN CORPUSCULAR HGB 29.3 pg (27.0-31.0); MEAN CORPUSCULAR HGB CONC 31.5 g/dl (33.0-37.0); MEAN PLATELET VOLUME 10.1 fl (9.6-12.3); MONO # 0.7 10*3/uL (0.1-1.0); MONO % 5.3 % (3.0-9.0); NEUT # 10.4 10*3/uL (2.3-7.9); NEUT % 73.4 % (47.0-73.0); PLATELET COUNT AUTOMATED 424 10*3/uL (130-400); RED BLOOD COUNT 4.41 10*6/uL (4.50-5.90); RED CELL DISTRI WIDTH 14.6 % (0-14.5); WHITE BLOOD COUNT 14.1 10*3/uL (4.8-10.8)
[2018-10-31 04:27] LABS: ACT PARTIAL THROMBO TIME 25.8 SECONDS (20.0-32.1); INTERNATIONAL NORM RATIO 1.1 (2.0-3.5)
[2018-10-31 04:34] LABS: ALBUMIN 2.5 gm/dl (3.1-4.5); ALKALINE PHOSPHATASE 113 U/L (45-117); BUN 11 mg/dl (7-24); CHLORIDE 104 mmol/L (98-107); CREATININE 1.04 mg/dL (0.70-1.30); POTASSIUM 3.5 mmol/L (3.5-5.1); SGOT/AST 14 IU/L (3-35); SGPT/ALT 11 U/L (12-78); SODIUM 139 mmol/L (136-145); TOTAL PROTEIN 7.6 gm/dL (6.4-8.2)
--- NOTE | 2018-10-31 07:20 | NUR ---
REPORT RECEIVED FROM GUIDE CRUISE RN. PT IS SLEEPING IN BED REQUESTING BREAKFAST. DIET ORDER PLACED. VITAL SIGNS ARE STABLE NOSIGNS OF ACUTE DISTRESS AT THIS TIME. WILL CONTINUE TO MONITOR.
[2018-10-31 07:21] VITALS: BP 127/53
[2018-10-31] MEDS ORDERED: LIDEX 0.05% CRE15 GM T (08:13)
--- NOTE | 2018-10-31 08:20 | NUR ---
A 73, admitted to , under the services of JUAN ANTONIO Dawn DO with a diagnosis of CHF. Chief complaint is SHORTNESS OF BREATH AND LEGS SWELLING. Patient arrived via stretcher from ER. Monitor applied. Initial assessment completed. Vital signs taken and recorded. JUAN ANTONIO DAWN DO notified of admission to the unit. Orders received. See assessment for past medical history, medications and allergies. Patient and/or family oriented to unit. [facility] visitation policy reviewed. Clothing/patient valuable form completed. VIC BURNS
--- NOTE | 2018-10-31 08:34 | NUR ---
WOUNDS: PT HAS EXTENSIVE, CHRIONIC PSORIASIS. THERE IS A LARGE AREA ON PT'S BACK WHICH IS RED BUT NO OPEN AREAS ARE IDENTIFIED. PT REFUSES TREATMENT FOR THIS AND REFUSES PHOTOGRAPHY EVEN IF IT WERE NEEDED.
[2018-10-31 08:38] VITALS: BP 134/65
[2018-10-31] MEDS ORDERED: ELIQUIS5 M1 PO (10:28)
[2018-10-31] MEDS ORDERED: KENALOG 0.1%80 GM T (10:30)
[2018-10-31] MEDS ORDERED: CLARITIN10 MG PO (10:31)
[2018-10-31] MEDS ORDERED: BENADRYL ALLERG25 M5 PO (10:32)
[2018-10-31] MEDS ORDERED: PROAIR HFA8.5 GM INH (10:33)
[2018-10-31 12:00] VITALS: BP 120/46
--- NOTE | 2018-10-31 12:08 | NUR ---
MEDICATED WITH PRN PO TYLENOL FOR ARTHRITIS PAIN, MILK OF MAGNESIA FOR CONSTIPATION, ALSO BENADRYL X 1 ORDERED FOR ITCH.
[2018-10-31 16:00] VITALS: BP 137/68
--- NOTE | 2018-10-31 17:38 | NUR ---
PATIENT REFUSES FINGER STICK FOR GLUCOSE TESTING.
--- NOTE | 2018-10-31 17:42 | NUR ---
PATIENT REFUSED IV LASIX.
[2018-10-31 20:00] VITALS: BP 110/50
--- NOTE | 2018-10-31 20:17 | NUR ---
24 HR chart check completed.
--- NOTE | 2018-10-31 21:00 | NUR ---
SLEEPING. RESPIRATIONS EASY. LUNGS DIMINISHED WITH FINE PB RALES. PULSE OX 96% 3L. C/O BURNING WITH URINATION. +1 BLE EDEMA. OFFERED AND EDUCATED REGARDING TEDS, DECLINED. CALL LIGHT WITHIN REACH. NO VOICED COMPLAINTS.
--- NOTE | 2018-10-31 22:30 | NUR ---
AWAKENED FOR PM MEDS. PATIENT ATTEMPTED TO REFUSE MEDICATIONS; RN EXPLAINED TO PATIENT THAT WE ARE UNABLE TO PROPERLY TREAT HIM IF HE CONTINUES TO REFUSE MEDS. AGREED TO PO MEDS. DECLINED BSG CHECK STATING THAT HE IS NOT DIABETIC. CALL LIGHT WITHIN REACH. NO VOICED COMPLAINTS
[2018-11-01] VITALS: BP 114/50
--- NOTE | 2018-11-01 | NUR ---
SLEEPING. NO DISTRESS NOTED. RESPIRATIONS EASY. VSS. CALL LIGHT WITHIN REACH
--- NOTE | 2018-11-01 06:00 | NUR ---
SLEPT THROUGHOUT NIGHT WITH NO DISTRESS NOTED. RESPIRATIONS EASY. O2 IN USE. CALL LIGHT WITHIN REACH. NO VOICED COMPLAINTS THIS SHIFT
[2018-11-01 07:27] LABS: BASO # 0.1 10*3/uL (0.0-0.1); BASO % 0.9 % (0.0-1.0); EOS % 6.9 % (1.0-4.0); HEMATOCRIT 43.5 % (42.0-52.0); HEMOGLOBIN 13.6 g/dl (14.0-18.0); LYMPH # 2.2 10*3/uL (1.3-4.4); LYMPH % 15.7 % (27.0-41.0); MEAN CELL VOLUME 93.8 fl (80.0-94.0); MEAN CORPUSCULAR HGB 29.3 pg (27.0-31.0); MEAN CORPUSCULAR HGB CONC 31.3 g/dl (33.0-37.0); MEAN PLATELET VOLUME 10.4 fl (9.6-12.3); MONO # 0.7 10*3/uL (0.1-1.0); MONO % 5.2 % (3.0-9.0); NEUT # 9.9 10*3/uL (2.3-7.9); NEUT % 70.9 % (47.0-73.0); PLATELET COUNT AUTOMATED 468 10*3/uL (130-400); RED BLOOD COUNT 4.64 10*6/uL (4.50-5.90); RED CELL DISTRI WIDTH 14.6 % (0-14.5)
[2018-11-01 08:00] VITALS: BP 134/76
[2018-11-01 08:04] LABS: CHLORIDE 104 mmol/L (98-107); POTASSIUM 3.9 mmol/L (3.5-5.1); SODIUM 139 mmol/L (136-145)
[2018-11-01 08:19] LABS: ALBUMIN 2.7 gm/dl (3.1-4.5); ALKALINE PHOSPHATASE 125 U/L (45-117); BUN 14 mg/dl (7-24); CREATININE 1.05 mg/dL (0.70-1.30); PHOSPHOROUS 3.7 mg/dL (2.5-4.9); SGOT/AST 13 IU/L (3-35); SGPT/ALT 12 U/L (12-78); TOTAL PROTEIN 8.3 gm/dL (6.4-8.2)
--- NOTE | 2018-11-01 08:30 | NUR ---
PATIENT C/O OF BACK AND LEG PAIN MEDICATED WITH TYLENOL
--- NOTE | 2018-11-01 08:58 | NUR ---
PHYSICAL THERAPY Nursing screen received and chart reviewed. Recommend PT evaluation if decline in functional mobility presents. Thank you. Gudelia Alonzo,PT,DPT
--- NOTE | 2018-11-01 09:00 | NUR ---
Biological Engineer in to talk to patient. Patient states lives at home with alone. There are few steps in the home. Physician: resident clinic Pharmacy: [facility] health services: none Patient's level of ADLs: INDEPENDENT Patient has working utilities: all working DME: home oxygen, nebulizer Follow-up physician's appointment after d/c: will be made by hospitalist nurse director upon discharge Does patient want to access PORTAL?: no Discharge plan discussed with patient, he lives at home, states he is independent in adls and ambualtion, he states he will be returning home when able and denies any home needs. HERMILA CHAMBERLAIN
--- NOTE | 2018-11-01 09:06 | NUR ---
Nursing screen received and chart reviewed. Patient admitted with CHF, BLE edema and SOB. If patient should have a decline in ADLs then refer to occupational therapy. Thank you. Leila Younger OTr/l
--- NOTE | 2018-11-01 09:46 | NUR ---
RESTING WITH EYES CLOSED NO SIGNS OF DISTRESS.
--- NOTE | 2018-11-01 10:59 | NUR ---
PODIATRY NOTIFIED OF CONSULT
[2018-11-01 12:00] VITALS: BP 101/34
[2018-11-01 20:00] VITALS: BP 127/96
--- NOTE | 2018-11-01 20:00 | NUR ---
24 HOUR CHART CHECK COMPLETE.
--- NOTE | 2018-11-01 20:30 | NUR ---
PT STATES THAT KENALOG CREAM SEEMS TO BE VERY EFFECTIVE FOR HIS PSORIASIS. STATES THAT HE WOULD LIKE TO HAVE A SCRIPT FOR IT UPON D/C. SAYS IT IS "ONE OF THE ONLY CREAMS HE HAS USED THAT ISN'T IRRITATING AND IS SOOTHING". WILL RELAY THIS INFO TO AM SHIFT NURSE.
--- NOTE | 2018-11-01 20:34 | NUR ---
PT REQUESTING TO NOT BE WOKEN UP AND IS REFUSING ALL NIGHT TIME MEDICATIONS AND BLOOD SUGAR CHECKS. I EXPLAINED THE IMPORTANCE OF RECEIVING MEDICATIONS AND PT STATES THAT "HE NEEDS SLEEP". I WAS ABLE TO DO AN ASSESSMENT BUT PER PT REQUEST WILL NOT BE ADMINISTERING ANY MEDCATIONS TONIGHT OR TOMORROW MORNING.
--- NOTE | 2018-11-01 21:39 | NUR ---
DR TOLENTINO NOTIFIED OF PTS REFUSAL OF BEDTIME MEDICATIONS. HE ASKED ME TO ASK THE PATIENT IF HE WOULD AT LEAST TAKE HIS ELIQUIS. PT AWOKE FROM SLEEP, AND WAS IRRITATED. TELLING ME "WE AREN'T CONCERNED THAT HE DOESN'T GET ANY SLEEP WHILE HE IS HERE", BUT DID TAKE THE ELIQUIS. I ASKED IF HE WOULD TAKE HIS OTHER PILLS AT THIS TIME AND HE CONTINUED TO REFUSE. WILL CONTINUE TO MONITOR.
--- NOTE | 2018-11-02 01:06 | NUR ---
PATIENT COMPLAINED OF BACK PAIN AT A 10/10. TYLENOL GIVEN PER PATIENT REQUEST. WILL ASSESS FOR EFFECTIVENESS.
--- NOTE | 2018-11-02 02:44 | NUR ---
ASKED THE PT HOW HE WAS FEELING AFTER THE ADMINISTRATION OF TYLENOL AND HE SAID HE "DOESN'T FEEL WELL". WHEN ASKED WHAT'S WRONG THE PT TOLD ME TO "GO LOOK AT HIS CHART AND I'LL FIND OUT" AND THAT "HE JUST NEEDS REST". WILL CONTINUE TO MONITOR.
[2018-11-02 07:17] LABS: BASO # 0.1 10*3/uL (0.0-0.1); BASO % 0.7 % (0.0-1.0); EOS # 0.9 10*3/uL (0.0-0.4); HEMATOCRIT 40.4 % (42.0-52.0); HEMOGLOBIN 12.8 g/dl (14.0-18.0); LYMPH # 2.2 10*3/uL (1.3-4.4); LYMPH % 17.9 % (27.0-41.0); MEAN CELL VOLUME 93.3 fl (80.0-94.0); MEAN CORPUSCULAR HGB 29.6 pg (27.0-31.0); MEAN CORPUSCULAR HGB CONC 31.7 g/dl (33.0-37.0); MONO # 0.8 10*3/uL (0.1-1.0); MONO % 6.7 % (3.0-9.0); NEUT # 8.2 10*3/uL (2.3-7.9); NEUT % 67.4 % (47.0-73.0); PLATELET COUNT AUTOMATED 415 10*3/uL (130-400); RED BLOOD COUNT 4.33 10*6/uL (4.50-5.90); RED CELL DISTRI WIDTH 14.4 % (0-14.5); WHITE BLOOD COUNT 12.1 10*3/uL (4.8-10.8)
[2018-11-02 07:43] LABS: BUN 20 mg/dl (7-24); CHLORIDE 103 mmol/L (98-107); CREATININE 1.05 mg/dL (0.70-1.30); POTASSIUM 3.9 mmol/L (3.5-5.1); SODIUM 140 mmol/L (136-145)
[2018-11-02 08:00] VITALS: BP 138/60
--- NOTE | 2018-11-02 08:00 | NUR ---
REFUSED TO TAKE ANY OF HIS MEDICATION AMD SUGAR CHECKS. 1 ON 1 NON EFFECTIVE
--- NOTE | 2018-11-02 11:00 | NUR ---
PATIENT CONTINUES TO REFUSE STEVEN HOSE. RESPIRATORY THERAPY IN ROOM TO ATTEMPT TO ASSESS PT FOR HOME O2, PATIENT REFUSED TO BE WALKED DUE TO WEAKNESS AND LEG PAIN. PT ALSO STATES THAT HE ALREADY HAS AN OXYGEN CONCENTRATER AT HOME.
--- NOTE | 2018-11-02 11:19 | NUR ---
NEW ORDERS RECEIVED FOR A CONSULT PALLATIVE CARE. PALLATINE CARE NOTIDIED
--- NOTE | 2018-11-02 11:35 | NUR ---
PT IS REFUSING TO DO HOME O2 ASSESSMNT. RN AND DOCTOR AWARE
--- NOTE | 2018-11-02 11:40 | NUR ---
PATIENT PERSISTENT IN STATING THAT HE IS NOT READY TO GO HOME AND IS STILL TOO SICK. PATIENT REFUSED AEROSOL TREATMENT WHILE I WAS IN THE ROOM. REMINDED PATIENT THAT HE HAS REFUSED MULTIPLE TREATMENTS, REFUSED TEDS, REFUSED CREAMS, AND DOES NOT WANT STAFF TO WAKE HIM UP WHILE HE IS ASLEEP. ALSO EXPLAINED THAT IF HE DOES NOT FEEL READY, DISCUSSED SENDING HIM TO SKILLED FACILITY FOR FURTHER TREATMENT. PATIENT STATES HE WILL TALK TO HIS FAMILY ABOUT THIS AND REQUESTS THAT CASE MANAGEMENT COME TALK TO HIM. NOTIFIED .
[2018-11-02 12:00] VITALS: BP 137/73
--- NOTE | 2018-11-02 13:03 | NUR ---
Patient agreeable to snf placement at [facility], will fax initial referral. Will fax therapy evals once completed. Requires a 3 night stay.
--- NOTE | 2018-11-02 14:19 | NUR ---
PHYSICAL THERAPY Physical therapy evaluation only complete, 4E. Moderate complexity PT evaluation per chart review and evaluation (36142). Education of SNF and therapy services given throughout evaluation, and patient states, "I don't want to walk and exercise. I want to go somewhere I can rest." Recommend discharge home with home health services. Thank you. Gudelia Alonzo,PT,DPT
--- NOTE | 2018-11-02 14:19 | NUR ---
Occupational Therapy offered this date. Patient responded that he did not need any therapy and that he was going to an "extended care center" to "rest" upon d/c. OT attempted to explain that patient would need to go to a SNF for therapy and needed the OT evaluation to qualify for his stay. Patient did not understand the need for therapy. OTR asked protective services case worker to speak with patient. After protective services case worker spoke with patient he was aggreable to the OT evaluation. Precautions include fall risk, improper ww use,severe skin psoriasis w/ patient c/o pain in groin area both sides with movement, low complexity level [id number] via chart review, testing and evaluation.During the evaluation and afterwards patient would not agree to any changes in his current routine; in ADLs or in mobility. He continued to inform OTR that he only wanted to sit on his sofa and relax at home. He also was upset that the ambulance did not get his own ww and that he would not be able to get into his home upon d/c IF someone took him home by cab. Patient also indicated that he was struggling at home to get meals and perform IADLs. Case management informed of the above. REcommend home with home health SN, OT,PT,ROTARY VENEER MACHINE OPERATOR and social work specialist. Thank you. Leila Younger OTR/Enrike
[2018-11-02 16:00] VITALS: BP 141/86
[2018-11-02 20:00] VITALS: BP 115/39
[2018-11-02 22:00] VITALS: BP 120/60
[2018-11-03] VITALS: BP 119/59
[2018-11-03 06:27] LABS: BASO # 0.1 10*3/uL (0.0-0.1); BASO % 0.9 % (0.0-1.0); EOS # 0.8 10*3/uL (0.0-0.4); EOS % 6.7 % (1.0-4.0); HEMATOCRIT 39.7 % (42.0-52.0); HEMOGLOBIN 12.1 g/dl (14.0-18.0); LYMPH # 2.4 10*3/uL (1.3-4.4); MEAN CORPUSCULAR HGB 28.9 pg (27.0-31.0); MEAN CORPUSCULAR HGB CONC 30.5 g/dl (33.0-37.0); MEAN PLATELET VOLUME 10.1 fl (9.6-12.3); MONO # 0.9 10*3/uL (0.1-1.0); MONO % 7.6 % (3.0-9.0); NEUT # 7.8 10*3/uL (2.3-7.9); NEUT % 64.4 % (47.0-73.0); PLATELET COUNT AUTOMATED 398 10*3/uL (130-400); RED BLOOD COUNT 4.18 10*6/uL (4.50-5.90); RED CELL DISTRI WIDTH 14.5 % (0-14.5); WHITE BLOOD COUNT 12.2 10*3/uL (4.8-10.8)
[2018-11-03 06:51] LABS: BUN 24 mg/dl (7-24); CHLORIDE 104 mmol/L (98-107); POTASSIUM 4.1 mmol/L (3.5-5.1); SODIUM 141 mmol/L (136-145)
[2018-11-03 06:54] LABS: CREATININE 1.01 mg/dL (0.70-1.30)
--- NOTE | 2018-11-03 08:44 | NUR ---
PT. REFUSED AEROSOL TREATMENT. WANTS TO SLEEP.
--- NOTE | 2018-11-03 09:08 | NUR ---
[facility] stated after review, patient doesn't meet snf criteria. Unable to accept this patient. Will notify hospitalists.
[2018-11-03] MEDS ORDERED: ELIQUIS5 M1 PO (10:16)
[2018-11-03] MEDS ORDERED: CYMBALTA20 M1 PO (10:16)
[2018-11-03] MEDS ORDERED: TAMSULOSIN HCL0.4 MG PO (10:16)
[2018-11-03] MEDS ORDERED: GABAPENTIN400 MG PO (10:16)
--- NOTE | 2018-11-03 11:04 | NUR ---
Pt refused blood sugar.
--- NOTE | 2018-11-03 13:10 | NUR ---
Discharge instructions reviewed with patient/family. Patient receptive and verbalizes understanding. Follow-up care arranged. Written instructions given to patient/family. JOE MORENO
--- NOTE | 2018-11-03 13:25 | NUR ---
Pt states his sister will be here at 2 pm to pick him up. States he wants taken down stairs to lobby at 155.
--- NOTE | 2018-11-03 13:55 | NUR ---
Discharged via wheelchair with belongings. Sister to meet pt out front of lobby.
== END 2018-11-03 13:55 | disposition home or self-care (01) | DRG 291 ==
LOC: ED 03:52 → EDHOLD 04:49 → 4E 04:49
PROVIDERS: Family Medicine; Internal Medicine; Student in an Organized Health Care Education/Training Program; ADMIT Emergency Medicine
PROC: 0HBRXZZ Excision of Toe Nail, External Approach (ICD-10-PCS; principal; 2018-11-02)
DX: I11.0 Hypertensive heart disease with heart failure (principal); E43 Unspecified severe protein-calorie malnutrition; R65.10 Systemic inflammatory response syndrome (SIRS) of non-infectious origin without acute organ dysfunction; I50.33 Acute on chronic diastolic (congestive) heart failure; J44.9 Chronic obstructive pulmonary disease, unspecified; L40.9 Psoriasis, unspecified; I25.10 Atherosclerotic heart disease of native coronary artery without angina pectoris; N40.0 Benign prostatic hyperplasia without lower urinary tract symptoms; D64.9 Anemia, unspecified; D47.3 Essential (hemorrhagic) thrombocythemia; E11.65 Type 2 diabetes mellitus with hyperglycemia; F17.210 Nicotine dependence, cigarettes, uncomplicated; E11.42 Type 2 diabetes mellitus with diabetic polyneuropathy; Z51.5 Encounter for palliative care; G89.29 Other chronic pain; M54.9 Dorsalgia, unspecified; Z79.01 Long term (current) use of anticoagulants; I25.2 Old myocardial infarction; Z68.26 Body mass index [BMI] 26.0-26.9, adult; Z79.51 Long term (current) use of inhaled steroids; Z79.899 Other long term (current) drug therapy

== ENCOUNTER 2019-11-05 02:30 | Inpatient (IN) | payer MEDICARE ==
[~2019-11-05] VITALS: Ht 152.4 cm; Wt 87.3 kg
[2019-11-05] VITALS (7 sets, daily range): BP systolic 93–168; BP diastolic 59–88
[~2019-11-05 02:30] MED LIST changes: +BENADRYL ALLERG25 M5 PO; +CLARITIN10 MG PO; +CYMBALTA20 M1 PO; +ELIQUIS5 M1 PO; +GABAPENTIN400 MG PO; +KENALOG 0.1%80 GM T; +LIDEX 0.05% CRE15 GM T; +PROAIR HFA8.5 GM INH
--- NOTE | 2019-11-05 02:36 | NUR ---
RT WITH PT AT THIS TIME.
--- NOTE | 2019-11-05 02:47 | NUR ---
DR HAIDER IN PATIENT ROOM. PT REFUSING TO BE EVALUATED BY DR HAIDER DUE TO PATIENT WANTING TO USE RESTROOM. PT PROVIDED WITH URINAL AND BEDSIDE COMMODE WHICH HE REFUSES TO USE.
--- NOTE | 2019-11-05 02:48 | NUR ---
PT AMBULATING TO RESTROOM AT THIS TIME WITH ASSISTANCE. PT REFUSING TO STAY IN ROOM TO USE URINAL.
--- NOTE | 2019-11-05 02:57 | NUR ---
PT BACK INSIDE ROOM. PT COOPERATIVE WITH EKG AND LAB WORK.
[2019-11-05 03:02] LABS: BILIRUBIN NEGATIVE; BLOOD TRACE-LYSED (NEGATIVE); CLARITY CLEAR (CLEAR); COLOR YELLOW (YELLOW); GLUCOSE NEGATIVE; KETONE NEGATIVE; LEUKO ESTERASE NEGATIVE (NEGATIVE); NITRITE NEGATIVE (NEGATIVE); UROBILINOGEN 0.2 E.U./dl (0.0-1.0)
[2019-11-05 03:06] LABS: BASO # 0.1 10*3/uL (0.0-0.1); BASO % 0.6 % (0.0-1.0); EOS # 0.3 10*3/uL (0.0-0.4); EOS % 1.7 % (1.0-4.0); HEMATOCRIT 49.2 % (42.0-52.0); LYMPH % 12.6 % (27.0-41.0); MEAN CELL VOLUME 96.5 fl (80.0-94.0); MEAN CORPUSCULAR HGB 30.4 pg (27.0-31.0); MEAN CORPUSCULAR HGB CONC 31.5 g/dl (33.0-37.0); MEAN PLATELET VOLUME 9.6 fl (9.6-12.3); MONO # 0.6 10*3/uL (0.1-1.0); MONO % 4.1 % (3.0-9.0); NEUT # 12.5 10*3/uL (2.3-7.9); NEUT % 80.6 % (47.0-73.0); PLATELET COUNT AUTOMATED 342 10*3/uL (130-400); RED CELL DISTRI WIDTH 13.4 % (0-14.5); WHITE BLOOD COUNT 15.5 10*3/uL (4.8-10.8)
--- NOTE | 2019-11-05 03:09 | NUR ---
PT REFUSING LASIX.
[2019-11-05 03:14] LABS: WBC 0-2 wbc/hpf (0-5)
[2019-11-05 03:17] LABS: ACT PARTIAL THROMBO TIME 27.9 SECONDS (20.0-32.1); INTERNATIONAL NORM RATIO 1.1 (2.0-3.5)
[2019-11-05 03:26] LABS: ALBUMIN 3.3 gm/dl (3.1-4.5); ALKALINE PHOSPHATASE 102 U/L (45-117); BUN 18 mg/dl (7-24); CHLORIDE 104 mmol/L (98-107); CREATININE 1.08 mg/dL (0.70-1.30); LIPASE 59 U/L (73-393); SGOT/AST 7 IU/L (3-35); SGPT/ALT 21 U/L (12-78); SODIUM 138 mmol/L (136-145); TOTAL PROTEIN 8.5 gm/dL (6.4-8.2); TROPONIN I 0.017 ng/ml (<0.045)
--- NOTE | 2019-11-05 03:40 | NUR ---
PT DENIES OPEN WOUNDS, BUT NOTES PSORIASIS. PT REFUSING PICTURES AND MEDICATIONS AT THIS TIME. PT AGREED TO ADMISSION.
--- NOTE | 2019-11-05 04:06 | NUR ---
LEGS ARE NOTED SCABBED AND DISCOLORED WITH NO OPEN AREAS. EDEMA BILATERALLY LOWER EXT.
--- NOTE | 2019-11-05 04:06 | NUR ---
Time: 405 A 74 year old male admitted to 4E under services of GABE HANSEN DO. Pt. arrived via stretcher from ER. Chief complaint: armando. JEANETTE BAGLEY
--- NOTE | 2019-11-05 04:06 | NUR ---
patient states he does not know his home medications. [facility] need to contact [facility]
--- NOTE | 2019-11-05 05:42 | NUR ---
DR TOLENTINO NOTIFIED OF [place] 2.9
--- NOTE | 2019-11-05 06:20 | NUR ---
PATIENT REFUSING BLOOD SUGAR CHECK, DENIES BEING DIABETIC & STATES HE WANTS A REGULAR DIET. PATIENT NOTIFIED THAT HE HAS AN ADA DIET AND HE SHOULD BE MONITORING HIS SALT INTAKE AT HOME.
[2019-11-05 06:25] LABS: BASO # 0.1 10*3/uL (0.0-0.1); BASO % 0.7 % (0.0-1.0); EOS # 0.3 10*3/uL (0.0-0.4); EOS % 1.9 % (1.0-4.0); HEMATOCRIT 48.1 % (42.0-52.0); LYMPH # 2.3 10*3/uL (1.3-4.4); LYMPH % 14.4 % (27.0-41.0); MEAN CELL VOLUME 96.8 fl (80.0-94.0); MEAN CORPUSCULAR HGB 30.4 pg (27.0-31.0); MEAN CORPUSCULAR HGB CONC 31.4 g/dl (33.0-37.0); MEAN PLATELET VOLUME 10.3 fl (9.6-12.3); MONO # 0.7 10*3/uL (0.1-1.0); MONO % 4.4 % (3.0-9.0); NEUT # 12.5 10*3/uL (2.3-7.9); NEUT % 78.2 % (47.0-73.0); PLATELET COUNT AUTOMATED 347 10*3/uL (130-400); RED BLOOD COUNT 4.97 10*6/uL (4.50-5.90); RED CELL DISTRI WIDTH 13.4 % (0-14.5)
[2019-11-05 06:55] LABS: BUN 18 mg/dl (7-24); CHLORIDE 103 mmol/L (98-107); CHOLESTEROL 211 mg/dL (<200); CREATININE 1.15 mg/dL (0.70-1.30); POTASSIUM 3.5 mmol/L (3.5-5.1); SODIUM 141 mmol/L (136-145); TRIGLYCERIDES 123 mg/dl (<150); VLDL CHOLESTEROL 25 mg/dL (6-40)
[2019-11-05 07:05] LABS: FREE T4 0.88 ng/dl (0.76-1.46); HDL CHOLESTEROL 41 mg/dl (40-60); LDL CHOLESTEROL 145 mg/dL (9-159)
[2019-11-05 07:32] LABS: VITAMIN D, 25-HYDROXY 21.5 ng/mL (30-100)
--- NOTE | 2019-11-05 07:37 | NUR ---
PT REFUSED FLUTTER VALVE. PT STATES HE DOES NOT NEED IT AND HE HAS 2 OF THEM AT HOME.
--- NOTE | 2019-11-05 08:00 | NUR ---
RESTING IN BED WITH NO ACUTE DISTRESS NOTED. RESPIRATIONS EASY. LUNGS DIMINISHED WITH EXP WHEEZES. PULSE OX 97% 2L. TRACE PEDAL EDEMA. DECLINES TEDS, LABS, BSG CHECKS. CALL LIGHT WITHIN REACH. NO VOICED COMPLAINTTS.
--- NOTE | 2019-11-05 08:13 | NUR ---
24 HR chart check completed.
--- NOTE | 2019-11-05 10:45 | NUR ---
REQUESTED AND RECEIVED TYLENOL PER PRN ORDER FOR COMPLAINTS OF HEADACHE RATING A 5. CALL LIGHT WITHIN REACH. WILL MONITOR
--- NOTE | 2019-11-05 11:15 | NUR ---
DR MICHELLE AND RESIDENT PRESENT ON FLOOR TO ASSESS PATIENT AND DISCUSS PLAN OF CARE
--- NOTE | 2019-11-05 11:30 | NUR ---
MEDS APPEAR EFFECTIVE. SLEEPING. RESPIRATIONS EASY. CALL LIGHT WITHIN REACH
--- NOTE | 2019-11-05 14:00 | NUR ---
REMAINS IN ROOM WITH DOOR CLOSED. NON-COMPLAINT WITH CARE
--- NOTE | 2019-11-05 18:00 | NUR ---
REMAINS IN ROOM WITH NO DISTRESS NOTED. RESPIRATIONS EASY. O2 IN USE AT 2L. CALL LIGHT WITHIN REACH. NO VOICED COMPLAINTS
[2019-11-06] VITALS: BP 94/57
--- NOTE | 2019-11-06 03:20 | NUR ---
PT STATES HE IS SOB AFTER GETTING UP OOB AND STRAIGHTENING BLANKETS. POX 96% ON 2L NC. REQUESTING BREATHING TX. RESPIRATORY NOTIFIED. WILL CONTINUE TO MONITOR.
--- NOTE | 2019-11-06 04:10 | NUR ---
PT QUESTIONING LASIX ORDERED AFTER TALKING TO RESPIRATORY. PT HAD PREVIOUSLY BEEN REFUSING LASIX, BUT NOW WILLING TO TAKE. PT MADE AWARE THAT 40 MG IV LASIX ORDERED DAILY AND SCHEDULED FOR 1000. POX CURRENTLY 95% AND ABOVE ON 3L NC.
--- NOTE | 2019-11-06 04:30 | NUR ---
RN BACK IN ROOM. PT RESTING IN BED, APPEARS TO BE SLEEPING. NO S/S OF DISTRESS NOTED. WILL MONITOR. CALL LIGHT IN REACH.
--- NOTE | 2019-11-06 05:38 | NUR ---
PO TYLENOL GIVEN FOR PT C/O HEADACHE. WILL MONITOR EFFECTIVENESS. CALL LIGHT LEFT IN REACH.
[2019-11-06 05:45] VITALS: BP 127/81
[2019-11-06 06:33] LABS: BASO % 0.1 % (0.0-1.0); HEMATOCRIT 46.8 % (42.0-52.0); LYMPH # 1.5 10*3/uL (1.3-4.4); LYMPH % 9.4 % (27.0-41.0); MEAN CELL VOLUME 96.3 fl (80.0-94.0); MEAN CORPUSCULAR HGB 31.3 pg (27.0-31.0); MEAN CORPUSCULAR HGB CONC 32.5 g/dl (33.0-37.0); MEAN PLATELET VOLUME 10.1 fl (9.6-12.3); MONO # 0.8 10*3/uL (0.1-1.0); MONO % 5.1 % (3.0-9.0); NEUT # 13.3 10*3/uL (2.3-7.9); PLATELET COUNT AUTOMATED 334 10*3/uL (130-400); RED BLOOD COUNT 4.86 10*6/uL (4.50-5.90); RED CELL DISTRI WIDTH 13.4 % (0-14.5); WHITE BLOOD COUNT 15.7 10*3/uL (4.8-10.8)
[2019-11-06 06:35] VITALS: BP 139/85
--- NOTE | 2019-11-06 06:38 | NUR ---
PT C/O MILD CHEST PAIN WHICH HE RATES 2/10. EKG ORDERED PER POLICY. WILL NOTIFY PHYSICIAN.
--- NOTE | 2019-11-06 06:43 | NUR ---
NOTIFIED OF PATIENT'S C/O MILD CHEST PAIN RATED 2/10. VITALS STABLE. EKG ORDERED BUT NOT YET TAKEN. RESPIRATORY NOTIFIED OF STAT ORDER. PER , ADD STAT TROPONIN NOW. PT STILL C/O HEADACHE UNRELIEVED BY TYLENOL. WILL CONTINUE TO MONITOR.
[2019-11-06 06:59] LABS: CHLORIDE 103 mmol/L (98-107); CREATININE 1.15 mg/dL (0.70-1.30); POTASSIUM 3.9 mmol/L (3.5-5.1); SODIUM 140 mmol/L (136-145)
[2019-11-06 07:00] LABS: BUN 36 mg/dl (7-24)
--- NOTE | 2019-11-06 07:20 | NUR ---
REPORT RECEIVED FROM TORREY BROWN. PT LYING IN BED AT THIS TIME. NO COMPLAINTS.
--- NOTE | 2019-11-06 07:25 | NUR ---
ORDERED TROPONIN NEGATIVE AND EKG COMPLETE. REPORT GIVEN TO AM SHIFT RN. STATES SHE WILL FOLLOW UP WITH PT C/O MILD CHEST PAIN.
--- NOTE | 2019-11-06 08:00 | NUR ---
INTO SEE PT. PT DENIES CHEST PAIN AT THIS TIME. PT REQUESTING TO SPEAK WITH CASE MANAGEMENT ABOUT HOME SITUATION. WILL NOTIFY THEM,
--- NOTE | 2019-11-06 09:00 | NUR ---
Dairy Cattle Farmer in to talk to patient. Patient states lives at home with alone. There are no steps in the home. Physician: resident clinic Pharmacy: [facility] health services: none Patient's level of ADLs: INDEPENDENT Patient has working utilities: all working DME: nebulizer, walker Follow-up physician's appointment after d/c: will be made by hospitalist nurse director upon discharge Does patient want to access PORTAL?: no Discharge plan discussed with patient, he states he lives at home alone, is independent in adls and ambulation with his walker, he stated he was being evicted from his apartment and would have no place to go. discussed with him a short term fpc for 5 days of rehab and 24 hour care prior to returning home or time to find another home to live in. he declined this, he stated he would return home. educated him that case management will have social media marketer talk with him regarding being evicted and housing options, case management will follow. HERMILA CHAMBERLAIN
--- NOTE | 2019-11-06 09:30 | NUR ---
ATTEMPTED TO CALL [facility] TO VERIFY HOME MEDICATIONS. PUT ON HOLD, THEN HUNG UP PHONE. WILL TRY AGAIN.
--- NOTE | 2019-11-06 09:45 | NUR ---
NURSE OUTREACH CASE MANAGER SPOKE WITH THE PATIENT AT BEDSIDE. PATIENT STATED SHE RESIDES ALONE IN AN APARTMENT. PATIENT STATED THAT HE USES A WALKER TO GET AROUND. PATIENTS SISTER OBTAINS GROCERIES FOR HIM. PATIENT STATED THAT HIS APART HAD ROACHES PREVIOUSLY AND HIS LANDLORD HAS SPRAYED 3 TIMES ALREADY. PATIENT STATED THAT HE CURRENTLY DOES NOT HAVE ANY, HOWEVER, HIS LANDLORD WANTED TO SPRAY AGAIN. THE LANDLORD CAME UNANNOUNCED AND THE PATIENT ASKED FOR HIM TO COME BACK AT A LATER TIME. THIS UPSET THE LANDLORD. THE PATIENT ATTEMPTED TO SPEAK WITH THE LANDLORD OVER THE PHONE AND HE WAS HUNG UP ON. PATIENT IS CONCERNED HE WILL BE GETTING AN EVICTION NOTICE. PATIENT TOLD THIS NURSE OUTREACH CASE MANAGER THAT HIS SISTER IS CURRENTLY WORKING ON SPEAKING WITH THE LANDLORD. NURSE OUTREACH CASE MANAGER ASKED IF HE WAS SERVED AN EVICTION NOTICE. THE PATIENT STATED NO. NURSE OUTREACH CASE MANAGER ASKED IF HE WANTED THIS NURSE OUTREACH CASE MANAGER TO REACH OUT TO THE LANDLORD. HE SAID NOT YET. HIS SISTER IS WORKING ON IT. NURSE OUTREACH CASE MANAGER EXPLAINED THAT HE COULD BE PROVIDED WITH HOMELESS SHELETER LIST, [place] APARTMENT APPLICATION, AND EXPLAINED [facility]EVIN [facility] IN [facility]. PATIENT REFUSED ALL OPTIONS. NURSE OUTREACH CASE MANAGER EXPLAINED THIS NURSE OUTREACH CASE MANAGER IS NOT ABLE TO FIND HIM AN APARTMENT FROM THIS FACILITY. PATIENT STATED HE HAS NO WHERE TO GO. HE STATED HE IS UNABLE TO GO TO HIS BROTHER OR HIS SISTERS HOME. NURSE OUTREACH CASE MANAGER EXPLAINED THAT IF THERE IS NO EVICTION NOTICE THE PROCESS HAS NOT STARTED AT THIS TIME. NURSE OUTREACH CASE MANAGER EXPLAINED THAT ONCE SERVED IT WOULD GO THROUGH THE COURT PROCESS AND WOULD TAKE APPROXIMATELY 30 DAYS. NURSE OUTREACH CASE MANAGER EXPLAINED THAT IF THIS IS THE CASE HE, THE PATIENT, WOULD BE ABLE TO SEEK OTHER HOUSING DURING THIS TIME. PATIENT UNDERSTOOD.
--- NOTE | 2019-11-06 09:45 | NUR ---
CASE MANAGEMENT IN TO SEE PT
--- NOTE | 2019-11-06 10:58 | NUR ---
ATTEMPTED TO CALL [facility] FOR THE 2ND TIME. PUT ON HOLD AND HUNG UP AGAIN. WILL TRY AGAIN.
--- NOTE | 2019-11-06 11:41 | NUR ---
IN TO CHECK ON PT. PT ASLEEP AT THIS TIME. NO S/S OF DISTRESS NOTED. CALL LIGHT IN REACH
[2019-11-06 12:00] VITALS: BP 94/76
--- NOTE | 2019-11-06 12:32 | NUR ---
PATIENT ASKED TO HAVE ESTRADA IN MED ASSIST TO SEE HIM. DATA WAREHOUSING SPECIALIST LEFT MESSAGE FOR ESTRADA.
--- NOTE | 2019-11-06 14:00 | NUR ---
IN TO SEE PT, PT ASLEEP AT THIS TIME.
--- NOTE | 2019-11-06 14:07 | NUR ---
GOT RAMEZ OF [place] AT THIS TIME. STATED THAT THEY WOULD GET THE INFORMATION TO THE PHARMACIST AND FAX OVER THE INFORMATION.
--- NOTE | 2019-11-06 15:00 | NUR ---
NO FAXED MEDICATION LIST AT THIS TIME. WILL TRY TO NOTIFY [facility] AGAIN
[2019-11-06 16:00] VITALS: BP 106/66
--- NOTE | 2019-11-06 16:13 | NUR ---
DR. GUNDERSON NOTIFIED OF CONSULT
--- NOTE | 2019-11-06 16:40 | NUR ---
[facility] FAXED [facility] RELEASE OF INFORMATION PAPERS. WILL GET THEM FILLED OUT AT THIS TIME
--- NOTE | 2019-11-06 17:32 | NUR ---
TYLENOL GIVEN FOR COMPLAINTS OF HEADACHE. WILL MONITOR
--- NOTE | 2019-11-06 18:00 | NUR ---
RELEASE OF INFO FAXED TO [facility] AT THIS TIME
--- NOTE | 2019-11-06 18:30 | NUR ---
TYLENOL APPEARS EFFECTIVE, PT ASLEEP
--- NOTE | 2019-11-06 19:39 | NUR ---
PATIENT INSTRUCTED ON INCENTIVE SPIROMETRY
[2019-11-06 20:00] VITALS: BP 122/78
--- NOTE | 2019-11-06 20:05 | NUR ---
MANUAL BP 122/78. PT STATES "MAKE SURE YOU TELL EVERYONE THAT BLOOD PRESSURE, I DON'T WANT ANY BAD REPORTS." RN ASSURED PT SHE WOULD CHART CORRECT BP. PT DENIES ANY NEEDS. STATES HE IS ALREADY GOING TO REFUSE MUCINEX AND STATES "IF THAT'S ALL I GET, DON'T WAKE ME UP."
[2019-11-07] VITALS: BP 134/65
--- NOTE | 2019-11-07 01:03 | NUR ---
PT REQUESTED AND RECEIVED PO TYLENOL FOR C/O HEADACHE RATED 6/10. WILL MONITOR EFFECTIVENESS. CALL LIGHT IN REACH.
--- NOTE | 2019-11-07 04:19 | NUR ---
PT AWAKE SITTING UP ON SIDE OF BED. BREATHING TX IN USE. PT HAS MULTIPLE COMPLAINTS, BUT DOES NOT WANT ANY OF THE COMFORT MEASURES OFFERED BY RN. RN EXPLAINED HIS ABX ARE DUE AT 0600. PT VERY UPSET ABOUT THIS. RN STATES SHE WILL BE BACK TO ADMINISTER THESE. PT DOES NOT RESPOND. WILL MONITOR.
[2019-11-07 08:00] VITALS: BP 143/79
--- NOTE | 2019-11-07 09:00 | NUR ---
case management visits with patient, again discussed a discharge plan including a short term long term for rehab, he declined, stated he would return home when discharged and denies any home needs, case management will follow
[2019-11-07 09:10] LABS: BASO % 0.1 % (0.0-1.0); HEMATOCRIT 45.3 % (42.0-52.0); LYMPH # 1.7 10*3/uL (1.3-4.4); LYMPH % 9.8 % (27.0-41.0); MEAN CELL VOLUME 95.6 fl (80.0-94.0); MEAN CORPUSCULAR HGB 30.6 pg (27.0-31.0); MEAN PLATELET VOLUME 9.9 fl (9.6-12.3); MONO % 5.5 % (3.0-9.0); NEUT # 14.7 10*3/uL (2.3-7.9); PLATELET COUNT AUTOMATED 346 10*3/uL (130-400); RED BLOOD COUNT 4.74 10*6/uL (4.50-5.90); RED CELL DISTRI WIDTH 13.3 % (0-14.5); WHITE BLOOD COUNT 17.4 10*3/uL (4.8-10.8)
--- NOTE | 2019-11-07 09:30 | NUR ---
OT NOTE Occupational therapy order received, chart reviewed, and attempted to see patient this AM at bedside. Patient currently declining an OT evaluation stating "I haven't walked in 2 years. I only stand up with the walker...you aren't going to fix anything in 2 or 3 days." Spoke with ordering MD (Dr. Allen) following in regards to patient declining therapy at this time. Will continue to follow and check back at a later date as appropriate. Thank you. Vanessa Britton, OTR/L
--- NOTE | 2019-11-07 09:30 | NUR ---
PHYSICAL THERAPY PT estebanleandro tej attempted to see pt at the bedside, currently declining therapy pt stating "I haven't walked in two years I only stand up and take a step or two with my walker, you aren't going to fix anything in 2 or 3 days" Pt politely declining therapy at this time. Spoke with ordering MD () regarding conversation above and pt not wanting to participate with therapy. MD to discuss with patient will follow for any further orders Nayla Lomeli PT
[2019-11-07 09:39] LABS: BUN 44 mg/dl (7-24); CHLORIDE 101 mmol/L (98-107); CREATININE 1.16 mg/dL (0.70-1.30); SODIUM 138 mmol/L (136-145)
[2019-11-07 12:00] VITALS: BP 103/65
[2019-11-07 16:00] VITALS: BP 101/75
--- NOTE | 2019-11-07 17:41 | NUR ---
PT REQUESTED AND WAS MEDICATED WITH TYLENOL FOR C/O HEADACHE. CALL LIGHT IN REACH. WILL MONITOR
--- NOTE | 2019-11-07 18:30 | NUR ---
MEDICATION EFFECTIVE PER PT. CALL LIGHT IN REACH. WILL MONITOR
--- NOTE | 2019-11-07 19:41 | NUR ---
RESPIRATORY IN ROOM TO ADMINISTER BREATHING TX. PT DENIES ANY NEEDS. WILL MONITOR. CALL LIGHT IN REACH.
--- NOTE | 2019-11-07 19:43 | NUR ---
PT'S BROTHER BROUGHT IN BAG TO ER WITH LAPTOP IN IT. BAG GIVEN TO PATIENT AT THIS TIME.
[2019-11-07 20:00] VITALS: BP 94/61
--- NOTE | 2019-11-07 21:42 | NUR ---
PO TYLENOL ADMINISTERED FOR C/O HEADACHE. WILL MONITOR EFFECTIVENESS. CALL LIGHT IN REACH. PT REFUSUING MIDNIGHT VITALS.
[2019-11-07 21:45] VITALS: BP 104/68
--- NOTE | 2019-11-07 22:30 | NUR ---
EARLIER TYLENOL APPEARS EFFECTIVE. PT ASLEEP IN BED. WILL MONITOR. CALL LIGHT IN USE.
--- NOTE | 2019-11-08 00:01 | NUR ---
PT REFUSED MIDNIGHT VITALS IF SLEEPING. PT CURRENTLY SLEEPING.
--- NOTE | 2019-11-08 02:22 | NUR ---
PT ASLEEP IN BED. RESPIRATIONS EASY. NO S/S OF DISTRESS NOTED. WILL MONITOR. CALL LIGHT IN REACH.
--- NOTE | 2019-11-08 05:01 | NUR ---
PT MEDICATED WITH PO TYLENOL FOR C/O HEADACHE AND PO DULCOLAX FOR C/O CONSTIPATION. WILL MONITOR. CALL LIGHT IN REACH. IV ABX INFUSING PER ORDER.
[2019-11-08 06:40] VITALS: BP 156/87
--- NOTE | 2019-11-08 06:40 | NUR ---
PT C/O MIDSTERNAL CHEST PAIN 09/24 RADIATING TO JAW. NOTIFIED. NEW ORDERS RECEIVED FOR STAT EKG AND STAT TROPONIN. EKG NOTIFIED OF NEW ORDER. WILL MONITOR.
[2019-11-08 06:55] LABS: BASO % 0.1 % (0.0-1.0); HEMATOCRIT 47.1 % (42.0-52.0); LYMPH # 1.4 10*3/uL (1.3-4.4); LYMPH % 10.2 % (27.0-41.0); MEAN CELL VOLUME 96.5 fl (80.0-94.0); MEAN CORPUSCULAR HGB 30.9 pg (27.0-31.0); MEAN CORPUSCULAR HGB CONC 32.1 g/dl (33.0-37.0); MEAN PLATELET VOLUME 10.1 fl (9.6-12.3); MONO # 0.8 10*3/uL (0.1-1.0); NEUT # 11.6 10*3/uL (2.3-7.9); NEUT % 83.3 % (47.0-73.0); PLATELET COUNT AUTOMATED 355 10*3/uL (130-400); RED BLOOD COUNT 4.88 10*6/uL (4.50-5.90); RED CELL DISTRI WIDTH 13.3 % (0-14.5); WHITE BLOOD COUNT 13.9 10*3/uL (4.8-10.8)
[2019-11-08 07:04] LABS: BUN 45 mg/dl (7-24); CHLORIDE 99 mmol/L (98-107); CREATININE 1.15 mg/dL (0.70-1.30); SODIUM 138 mmol/L (136-145)
[2019-11-08 08:00] VITALS: BP 110/69
--- NOTE | 2019-11-08 09:00 | NUR ---
case management visits with patient, he will return home when discharged, denies any home needs, patient does not have oxygen at home, will need assessed for home oxygen, case management will follow
--- NOTE | 2019-11-08 09:35 | NUR ---
FIRE WATCHMAN IN TO SPEAK WITH PATIENT. FIRE WATCHMAN SPOKE TO THIS PATIENT ABOUT HIS CURRENT HOME SITUATION. PATIENT STATED HIS BROTHER WENT OVER TO HIS APARTMENT AND IT LOOKED IF THE LANDLORD WAS IN THERE AND SPRAYED FOR BED BUGS. FIRE WATCHMAN ASKED IF THIS PATIENT HAS SPOKEN TO HIS LANDLORD ABOUT HIM RETURNING THERE. PATIENT STATED "I AM GOING BACK THERE". FIRE WATCHMAN EXPLAINED IF THAT WAS HIS INTENTIONS AND WAS NOT CONCERNED ABOUT NOT BEING ABLE TO RETURN FIRE WATCHMAN WILL NOT CONTACT HIS LANDLORD. PATIENT ASKED WHO WOULD HELP HIM IF HE DID RETURN TO HIS APARTMENT AND COULD NOT STAY THERE. FIRE WATCHMAN EXPLAINED THAT THIS FIRE WATCHMAN CANNOT FOLLOW HIM IN THE COMMUNITY. FIRE WATCHMAN EXPLAINED WOULD BE ABLE TO PROVIDE RESOURCES FOR [facility] AND [facility] SENIOR SERVICES. PATIENT REQUESTED THAT THIS FIRE WATCHMAN PROVIDE THIS INFORMATION AT A LATER TIME BECAUSE HE WAS NOT FELLING WELL. FIRE WATCHMAN WILL GIVE THIS PATIENT THESE RESOURCES LATER ON TODAY.
--- NOTE | 2019-11-08 10:21 | NUR ---
MEDICATED WITH FENTANYL, GI COCKTAIL AND ATIVAN IV PER ORDERS. WILL MONITOR
--- NOTE | 2019-11-08 11:15 | NUR ---
MEDICATIONS EFFECTIVE, PT SLEEPING. NO DISTRESS NOTED. CALL LIGHT IN REACH. WILL MONITOR
--- NOTE | 2019-11-08 11:26 | NUR ---
DR PALOMARES CONSULT CALLED TO THE OFFICE.
--- NOTE | 2019-11-08 11:47 | NUR ---
DR HOGAN CALLED RE: CONSULT. MESSAGE LEFT ON VOICEMAIL TO RETURN CALL.
--- NOTE | 2019-11-08 12:13 | NUR ---
DR HOGAN CALLED UNIT, NOTIFIED OF CONSULT.
--- NOTE | 2019-11-08 14:05 | NUR ---
PHYSICAL THERAPY Second attempt at evaluation, upon entering room pt sitting up at EOB. Educated pt on PT and MD orders for activity. Per pt he "needs to see a Neurologist and a Chiropractor first" for his back and does not feel that therapy is appropriate at this time. Pt demonstrated STS from EOB Mod Ind with FWW, Amb 5 ft w FWW Mod Ind forward/back from bed. Pt states he is getting up on his own ambulating to bathroom and does not want therapy at this time until after he has seen specialists, discussed with CM. Will discontinue PT orders at this time as pt does not want any therapy at this time. Nayla Lomeli PT
--- NOTE | 2019-11-08 14:05 | NUR ---
Patient seated edge of bed with wheeled walker nearby after returning for CT scan of abdomen per patient. Patient denies need for OT/rehab at this time as he has severe back pain with "electric shocks shooting down his legs adn arms" He feels that until a doctor is able to relief the pressure in his spine that he will not benefit from any therapy. Patient lives alone in an apt and uses his rollator walker. He was independent in all ADLs and light meal prep by his report. Discharge OT referral per patients request. Thank you for this referral. Leila Younger OTR/l
[2019-11-08 16:00] VITALS: BP 114/70
[2019-11-08 20:00] VITALS: BP 117/80
--- NOTE | 2019-11-08 21:39 | NUR ---
PATIENT REFUSING MIDNIGHT VITAL SIGNS.
--- NOTE | 2019-11-09 04:55 | NUR ---
PATIENT IV DUE TO BE CHANGED BUT PATIENT REFUSING.
[2019-11-09 06:09] LABS: BASO % 0.1 % (0.0-1.0); HEMATOCRIT 48.3 % (42.0-52.0); LYMPH # 1.3 10*3/uL (1.3-4.4); LYMPH % 9.8 % (27.0-41.0); MEAN CELL VOLUME 96.6 fl (80.0-94.0); MEAN CORPUSCULAR HGB 30.8 pg (27.0-31.0); MEAN CORPUSCULAR HGB CONC 31.9 g/dl (33.0-37.0); MEAN PLATELET VOLUME 9.8 fl (9.6-12.3); MONO # 0.9 10*3/uL (0.1-1.0); MONO % 6.8 % (3.0-9.0); NEUT # 10.9 10*3/uL (2.3-7.9); NEUT % 82.7 % (47.0-73.0); PLATELET COUNT AUTOMATED 331 10*3/uL (130-400); RED CELL DISTRI WIDTH 13.2 % (0-14.5); WHITE BLOOD COUNT 13.2 10*3/uL (4.8-10.8)
[2019-11-09 06:22] LABS: BUN 46 mg/dl (7-24); CHLORIDE 103 mmol/L (98-107); CREATININE 1.17 mg/dL (0.70-1.30); POTASSIUM 4.3 mmol/L (3.5-5.1); SODIUM 138 mmol/L (136-145)
--- NOTE | 2019-11-09 07:29 | NUR ---
PATIENT REQUESTING TYLENOL FOR A HEADACHE. MEDICATED AT THIS TIME. WILL CONTINUE TO MONITOR.
--- NOTE | 2019-11-09 07:45 | NUR ---
PT. REFUSED AEROSOL TREATMENT AT THIS TIME. STATES HE WANTS TO SLEEP.
[2019-11-09 08:00] VITALS: BP 145/94
--- NOTE | 2019-11-09 08:25 | NUR ---
PT STATES MEDICATION EFFECTIVE. WILL MONITOR
--- NOTE | 2019-11-09 09:30 | NUR ---
Patient resting quietly with no c/o discomfort. Respirations easy and regular. Vital signs stable. No overt distress. KIMBERLY COFFMAN R
--- NOTE | 2019-11-09 12:04 | NUR ---
ESTRADA IN MED ASSIST STATED THAT SHE HAS ATTEMPTED SEVERAL TIMES. FROM PREVIOUS ADMISSIONS THIS PATIENT IS OVER RESOURCED FOR MEDICAID.
--- NOTE | 2019-11-09 15:56 | NUR ---
REFUSED AEROSOL TREATMENT
[2019-11-09 16:00] VITALS: BP 138/80
--- NOTE | 2019-11-09 16:30 | NUR ---
Patient resting in bed. Respirations easy and regular on O2. Vital signs stable. No overt distress. KIMBERLY COFFMAN
[2019-11-09 20:00] VITALS: BP 106/61
--- NOTE | 2019-11-09 20:53 | NUR ---
PATIENT WOKEN UP FOR NIGHT TIME MEDICATIONS. PATIENT VOICES NO COMPLAINTS. RESPIRATIONS EASY, NON LABORED. VSS. PATIENT REFUSING VITALS AT MIDNIGHT AGAIN AND DOES NOT WANT DISTURBED THROUGHTOUT THE NIGHT. BED IN LOWEST POSITION,CALL LIGHT WITHIN REACH. [facility]
--- NOTE | 2019-11-10 06:12 | NUR ---
PATIENT REQUESTING SOMETHING TO HELP HIM POOP. OFFERED HIM DULCOLAX. PATIENT REFUSED. STATES IT DOESNT WORK.
--- NOTE | 2019-11-10 07:37 | NUR ---
TYLENOL GIVEN FOR C/O HEADACHE, WILL MONITOR.
--- NOTE | 2019-11-10 07:40 | NUR ---
REFUSED AEROSOL TREATMENT. PT. C/O A HEADACHE. RN AWARE
[2019-11-10 08:00] VITALS: BP 131/70
--- NOTE | 2019-11-10 11:16 | NUR ---
REFUSED AEROSOL TREATMENT
[2019-11-10] MEDS ORDERED: PREDNISONE10 MG PO (11:22)
--- NOTE | 2019-11-10 12:28 | NUR ---
Patients sister called stating this patient is going to be evicted from his apartment and will have no where to live in 30 days. She asked if we could find patient an apartment (he lives in [facility]). I gave her resources in [place] and she stated she's already tried those and there is a long waiting list. I gave her the number to Alfreda for [facility] [place] [facility] [place] apartments. I also gave her the number to call [facility] but was unsure if he would be eligible since he [place] a [place] resident.
--- NOTE | 2019-11-10 15:13 | NUR ---
NOTIIFIED DR. ROSSI OF PT'S CRITICAL LAB VALUE.
--- NOTE | 2019-11-10 16:16 | NUR ---
MSDIS Discharge instructions reviewed with patient/family. Patient receptive and verbalizes understanding. Follow-up care arranged. Written instructions given to patient/family. DONALD GUZÁMN
== END 2019-11-10 16:16 | disposition home or self-care (01) | DRG 190 ==
LOC: ED 02:30 → 4E 03:40 → EDHOLD 03:40 → 4E 03:49
PROVIDERS: Emergency Medicine Emergency Medical Services; Internal Medicine; ADMIT Internal Medicine; ATTEND Internal Medicine
DX: J44.0 Chronic obstructive pulmonary disease with (acute) lower respiratory infection (principal); I50.33 Acute on chronic diastolic (congestive) heart failure; E87.2 Acidosis; E44.1 Mild protein-calorie malnutrition; J44.1 Chronic obstructive pulmonary disease with (acute) exacerbation; J20.9 Acute bronchitis, unspecified; N40.0 Benign prostatic hyperplasia without lower urinary tract symptoms; I25.10 Atherosclerotic heart disease of native coronary artery without angina pectoris; M54.9 Dorsalgia, unspecified; F17.210 Nicotine dependence, cigarettes, uncomplicated; L40.9 Psoriasis, unspecified; E11.65 Type 2 diabetes mellitus with hyperglycemia; E11.42 Type 2 diabetes mellitus with diabetic polyneuropathy; I71.4 Abdominal aortic aneurysm, without rupture; G89.29 Other chronic pain; I11.0 Hypertensive heart disease with heart failure; Z79.899 Other long term (current) drug therapy; Z71.6 Tobacco abuse counseling; Z79.01 Long term (current) use of anticoagulants; I25.2 Old myocardial infarction; Z79.51 Long term (current) use of inhaled steroids

== ENCOUNTER 2019-12-11 07:56 | Inpatient (IN) | payer MEDICARE ==
[~2019-12-11] VITALS: Ht 182.8 cm; Wt 90.9 kg
[2019-12-11 08:00] VITALS: BP 147/82
--- NOTE | 2019-12-11 08:05 | NUR ---
PATIENT PLACED ON CPAP +12 WITH LARGE FULL FACE MASK FIO2 100%.
[2019-12-11 08:25] LABS: BASO # 0.1 10*3/uL (0.0-0.1); BASO % 0.4 % (0.0-1.0); EOS # 0.2 10*3/uL (0.0-0.4); EOS % 1.2 % (1.0-4.0); HEMATOCRIT 49.3 % (42.0-52.0); LYMPH % 10.2 % (27.0-41.0); MEAN CELL VOLUME 99.2 fl (80.0-94.0); MEAN CORPUSCULAR HGB 30.8 pg (27.0-31.0); MEAN PLATELET VOLUME 9.5 fl (9.6-12.3); MONO # 0.9 10*3/uL (0.1-1.0); MONO % 4.7 % (3.0-9.0); NEUT # 16.1 10*3/uL (2.3-7.9); NEUT % 82.3 % (47.0-73.0); PLATELET COUNT AUTOMATED 289 10*3/uL (130-400); RED BLOOD COUNT 4.97 10*6/uL (4.50-5.90); RED CELL DISTRI WIDTH 14.3 % (0-14.5); WHITE BLOOD COUNT 19.6 10*3/uL (4.8-10.8)
--- NOTE | 2019-12-11 08:25 | NUR ---
ONE INCH OF NITRO PASTE APPLIED TO THE LEFT UPPER CHEST.
[2019-12-11 08:39] LABS: ACT PARTIAL THROMBO TIME 22.4 SECONDS (20.0-32.1)
[2019-12-11 08:41] LABS: ALBUMIN 3.3 gm/dl (3.1-4.5); ALKALINE PHOSPHATASE 106 U/L (45-117); BUN 23 mg/dl (7-24); CHLORIDE 105 mmol/L (98-107); CREATININE 1.15 mg/dL (0.70-1.30); POTASSIUM 3.9 mmol/L (3.5-5.1); SGOT/AST 40 IU/L (3-35); SGPT/ALT 55 U/L (12-78); SODIUM 142 mmol/L (136-145); TOTAL PROTEIN 7.7 gm/dL (6.4-8.2)
[2019-12-11 08:53] LABS: TROPONIN I 0.076 ng/ml (<0.045)
[2019-12-11 08:55] LABS: ABG BASE EXCESS 0.1 mmol/L (-2.0-2.0); ARTERIAL BLOOD GAS PH 7.312 (7.35-7.45)
--- NOTE | 2019-12-11 09:00 | NUR ---
PT ON CPAP OF 12 AND 100%. ABG DRAWN. 7.312/55/511/27. FIO2 DECREASED TO 40%. SHORTLY AFTER CHANGE, PT TAKEN OFF OF CPAP AND PLACED ON 2 L NC. HR 81 RR 20 SPO2 97% BBSs DIMINISHED AND FINE EXP WHEEZES. PT C/O MILD SOB. CPAP ON S/B.
[2019-12-11 10:13] VITALS: BP 132/87
--- NOTE | 2019-12-11 10:14 | NUR ---
RESPIRATORY TOOK THE PATIENT OFF OF THE CPAP
--- NOTE | 2019-12-11 11:17 | NUR ---
THE PATIENT WAS UNABLE TO PROVIDE A URINE SAMPLE
--- NOTE | 2019-12-11 11:37 | NUR ---
RESPIRATORY PUT THE PATIENT BACK ON THE CPAP
--- NOTE | 2019-12-11 12:00 | NUR ---
THE PATIENT HAS NUMBEROUS SITES OF PSORIASIS TO THE BACK, AND LOWER LEG
--- NOTE | 2019-12-11 12:10 | NUR ---
A 74, admitted to , under the services of YON Starr DO with a diagnosis of ACUTE RESP FAILURE W/ HYPERCAPNIA, CHF, SEVERE SEPSIS. Chief complaint is SOB. Patient arrived via bed from ER. Monitor applied. Initial assessment completed. Vital signs taken and recorded. YON STARR DO notified of admission to the unit. Orders received. See assessment for past medical history, medications and allergies. Patient and/or family oriented to unit. [address] visitation policy reviewed. Clothing/patient valuable form completed. WILMER COATES
--- NOTE | 2019-12-11 12:28 | NUR ---
PATIENT TRANSPORTED FOR ER TO [facility]. PLACED BACK ON CPAP OF 12 AT 40%.
--- NOTE | 2019-12-11 12:31 | NUR ---
PTS MED REC UPDATED PER PT
[2019-12-11 12:45] VITALS: BP 135/64
--- NOTE | 2019-12-11 12:45 | NUR ---
ATTEMPTED TO NOTIFY DR GUNDERSON REGARDING NEW CONSULT. AWAITING CALL BACK.
[2019-12-11 13:46] LABS: ABG BASE EXCESS -0.7 mmol/L (-2.0-2.0); ARTERIAL BLOOD GAS PH 7.345 (7.35-7.45)
--- NOTE | 2019-12-11 14:00 | NUR ---
MODE CHANGED TO BIPAP WITH PRESSURES OF 16/8. SYSTEM CHECKED AND FX'ING. ABG TO FOLLOW IN 2 HRS.
--- NOTE | 2019-12-11 14:57 | NUR ---
PT STATED "HE ROLLED OVER AND HIS IV FELL OUT". REFUSING IV PLACEMENT AT THIS TIME. WILL CONTINUE TO MONITOR.
[2019-12-11 16:00] VITALS: BP 135/83
[2019-12-11 16:43] LABS: ABG BASE EXCESS 1.6 mmol/L (-2.0-2.0); ARTERIAL BLOOD GAS PH 7.369 (7.35-7.45)
--- NOTE | 2019-12-11 17:26 | NUR ---
REPEAT ABG'S CALLED TO DR GUNDERSON
--- NOTE | 2019-12-11 19:00 | NUR ---
ASSUMED CARE FOR THIS PT AT THIS TIME. PT RESTING QUIETLY IN BED. PT'S COLOR DUSKY. MOIST SOCIAL WORKER AIDE COUGH NOTED. RHONCHI/WHEEZING/RALES NOTED T/O. HR IRREGULAR. PT REFUSING BIPAP. 2LNC O2 ON. PT REMINDED OF STRESS TEST IN AM. PT DOES NOT WANT TO HAVE IT. PT TEACHING GIVEN AND PT IS AGREEABLE AT THIS TIME. CALL LIGHT IN REACH.
[2019-12-11 20:00] VITALS: BP 71/47
--- NOTE | 2019-12-11 23:00 | NUR ---
Pt will not wear the BiPap tonight. Pt remains on 2L NC. SpO2 99%.
[2019-12-12] VITALS: BP 107/73
--- NOTE | 2019-12-12 06:18 | NUR ---
PT WOULD LIKE A REGULAR DIET. HE IS VERY UPSET OVER THE CARDIAC DIET AND STATES HE WILL NOT FOLLOW IT AT HOME.
--- NOTE | 2019-12-12 06:29 | NUR ---
PT C/O H/A. MEDICATED W/NORCO PO. PT ENCOURAGED TO HAVE THE STRESS TEST DONE. PT AGREEABLE. CALL LIGHT IN REACH.
[2019-12-12 06:33] LABS: HEMATOCRIT 46.1 % (42.0-52.0); MEAN CELL VOLUME 97.7 fl (80.0-94.0); MEAN CORPUSCULAR HGB 30.1 pg (27.0-31.0); MEAN CORPUSCULAR HGB CONC 30.8 g/dl (33.0-37.0); MEAN PLATELET VOLUME 9.8 fl (9.6-12.3); PLATELET COUNT AUTOMATED 293 10*3/uL (130-400); RED BLOOD COUNT 4.72 10*6/uL (4.50-5.90); RED CELL DISTRI WIDTH 13.7 % (0-14.5); WHITE BLOOD COUNT 15.5 10*3/uL (4.8-10.8)
[2019-12-12 06:46] LABS: ALBUMIN 2.8 gm/dl (3.1-4.5); ALKALINE PHOSPHATASE 86 U/L (45-117); BUN 28 mg/dl (7-24); CHLORIDE 104 mmol/L (98-107); CREATININE 1.06 mg/dL (0.70-1.30); SGOT/AST 16 IU/L (3-35); SGPT/ALT 40 U/L (12-78); SODIUM 141 mmol/L (136-145); TOTAL PROTEIN 6.8 gm/dL (6.4-8.2)
[2019-12-12 06:59] LABS: TOTAL CELLS COUNTED 100 #CELLS
[2019-12-12 07:04] LABS: PLATELET SUFFICIENCY NORMAL (NORMAL); POTASSIUM 5.2 mmol/L (3.5-5.1)
[2019-12-12 07:42] LABS: ABG BASE EXCESS 2.8 mmol/L (-2.0-2.0); ARTERIAL BLOOD GAS PH 7.382 (7.35-7.45)
[2019-12-12 08:00] VITALS: BP 138/73
--- NOTE | 2019-12-12 08:21 | NUR ---
FRUSTRATED AND COMPLAINING OF HEADACHE. WANTS TO EAT. RAISING VOICE ABOUT EATING. EXPLAINED TO HIM THAT HE IS SCHEDULED FOR A STRESS TEST THIS AFTERNOON AND THE DOCTOR WHO WILL BE PERFORMING IT IS NOT IN AT THIS TIME. STILL ANGRY AND YELLING ABOUT GETTING FOOD. REPEATEDLY ASKED TO CANCELL STRESS TEST. WILL INFORM PRIMARY CARE AND CARDIO OF PT DECISION.
--- NOTE | 2019-12-12 09:00 | NUR ---
Fabric And Textile Factory Worker in to talk to patient. Patient states lives at home with alone. There are no steps in the home. Physician: resident clinic Pharmacy: [facility] health services: none Patient's level of ADLs: INDEPENDENT Patient has working utilities: all working DME: nebulizer, walker Follow-up physician's appointment after d/c: will be made by hospitalist nurse director upon discharge Does patient want to access PORTAL?: no Discharge plan discussed with patient, he lives at home alone, he is independent in adls and ambulation, he states she iwll return home when discharged and denies any home needs, case management will follow. HERMILA CHAMBERLAIN
--- NOTE | 2019-12-12 09:20 | NUR ---
OT NOTE Occupational therapy order received, chart reviewed, and attempted to see patient at bedside. Nursing gave approval to see patient. Patient seated at the EOB upon arrival with his breakfast. He stated he has been using the FWW in the room and going into the bathroom independently and did not want to participate or demonstrate at this time. Will check back on the patient to determine if there are further needs. Thank you. Vanessa Britton, OTR/L
--- NOTE | 2019-12-12 09:26 | NUR ---
PHYSICAL THERAPY Piyush received attempted to see pt at the bedside, pt sitting at EOB upon entering room. Ed pt on PT and activity pt stated he is up amb in room with FWW on his own and does not need therapy at this time. Deferred therapy at this time per pt request. Nayla Lomeli PT
[2019-12-12 12:00] VITALS: BP 122/80
--- NOTE | 2019-12-12 12:06 | NUR ---
PER CARDIOLOGY RESIDENT, PT OK FOR STRESS TEST TOMORROW DOSE IS NOT HERE YET TODAY. OK FOR EARLY TRAY AT 0700 ON 12/12.
--- NOTE | 2019-12-12 12:33 | NUR ---
REQUESTING TO SPEAK WITH CARDIOLOGY RESIDENT AGAIN. PAGED TO HIS ROOM.
--- NOTE | 2019-12-12 12:40 | NUR ---
CALLED TO ROOM AGAIN, PT STATES HE DOES NOT WANT A CARDIAC DIET AND WANTS TO FIRE THE DOCTOR FOR PUTTING HIM ON IT. SAYS IF IT IS NOT CHANGED, HE WILL LEAVE AND TO CANCELL THE STRESS TEST FOR TOMORROW. WILL NOTIFIY QUE SIMONS.
[2019-12-12 16:00] VITALS: BP 114/53
--- NOTE | 2019-12-12 19:29 | NUR ---
PT WAS INCREASED FROM 2L NC TO 6LNC. SATS ON 2L WERE 88%. PT IMPROVED TO 94% ON 6L.
[2019-12-12 20:00] VITALS: BP 98/53
--- NOTE | 2019-12-12 20:51 | NUR ---
C/O H/A RATED "8" NORCO GIVEN PER ORDER FOR PAIN. SEE MAR.
--- NOTE | 2019-12-12 21:50 | NUR ---
NORCO EFFECTIVE FOR H/A PAIN PER PT.
[2019-12-13] VITALS: BP 95/72
--- NOTE | 2019-12-13 03:10 | NUR ---
24 HR chart check completed.
--- NOTE | 2019-12-13 06:38 | NUR ---
PATIENT MEDICATED WITH NORCO FOR C/O HEADACHE. WILL MONITOR
--- NOTE | 2019-12-13 07:30 | NUR ---
HOME HELPING WITH HEADACHE PER PT.L
[2019-12-13 08:00] VITALS: BP 92/49
--- NOTE | 2019-12-13 08:30 | NUR ---
QUE VARGAS NOTIFIED OF 10 BEAT RUN OF VTA.
--- NOTE | 2019-12-13 09:03 | NUR ---
PHYSICAL THERAPY PT higinio received and chart reviewed. Attempted to see pt this AM, pt refused PT and stated he did not want PT to come back this date or tomorrow. Pt states he will return home alone when he is D/C and does not need PT. Spoke benito Osborn and updated her on PT evaluation. Will continue to follow. Thank you. Chiki Alexis SPT Gudelia Alonzo PT,DPT
--- NOTE | 2019-12-13 09:42 | NUR ---
TOUR COORDINATOR IN TO SEE PATIENT. PATIENT STATED THAT HE PREVIOUSLY HAD HOME O2 THROUGH A COMPANY NAMED [employer]. HE STATED HE HAD A DEDUCTABLE AND A MONTHLY PAYMENT OF $16.00. HE STATED HE WAS NOT ABLE TO MAKE THE DEDUCTABLE PAYMENT. ONCE ASSESSED FOR HOME OXYGEN, WE WILL SEE IF THERE IS A COMPANY TO ASSIST WITH PAYMENTS. TOOL MAKER APPRENTICE IS AWARE.
--- NOTE | 2019-12-13 09:57 | NUR ---
PATIENT UPSET HE HAS NOT BE TAKEN DOWN FOR HIS STRESS TEST YET. TALKED WITH PATIENT AND TOLD HIM I WOULD CALL [facility] AND TRY TO GET A TIME. [facility] STATES THEY WILL BE UP TO GET PATIENT AROUND 11. PATIENT INFORMED AND STATES THIS IS FINE.
--- NOTE | 2019-12-13 10:40 | NUR ---
Contacted Shelia from the [place]. She stated they do see this patient at the [place] clinic and he is seen by Norma Rick, however she doesn't see any notes regarding home oxygen. She gave me the number and extension for the [facility] home oxygen section of the [place] [phone] ext [phone]. I could not reach anyone at this number, left message, waiting for return call. Shelia did say that patient is correct, if he continues to smoke they will not provide him with home oxygen for safety reasons.
--- NOTE | 2019-12-13 11:30 | NUR ---
PATIENT OFF THE FLOOR FOR STRESS TEST AT THIS TIME.
[2019-12-13 12:00] VITALS: BP 174/87
--- NOTE | 2019-12-13 12:05 | NUR ---
INFORMED SIGNED CONSENT OBTAINED FOR LEXISCAN STRESS TEST WITH DR PALOMARES. RESTING EKG NSR HR 80 T WAVE INVERSION AVR, AVL, V1-V2. PULSE OX 97% ON 6L. PT COMPLETED ONE MINUTE OF A LEXISCAN PROTOCOL WITH PT RECEIVING LEXISCAN 0.4MG IV OVER [address] PVC NOT[address] NO [address] CHANGES SEEN. PT C/O SOB AND H/A WITH INJECTION. LAST RECOVERY HR OF 93 BP 140/88. PT IN STABLE CONDITION, AWAITING NUCLEAR IMAGES.
--- NOTE | 2019-12-13 13:06 | NUR ---
PATIENT BACK ON THE FLOOR AT THIS TIME.
--- NOTE | 2019-12-13 14:15 | NUR ---
HOME O2 ASSESSMENT: PRE BP: 173/75, HR 96, RR 20, PULSE OX 89%-90% ON ROOM AIR AT REST. AMBULATED PATIENT APPROX 30', SAT DECREASED TO 88% ON ROOM AIR WHILE AMBULATING. PLACED 2 L/M ON PATIENT, PULSE OX >93%-95% WHILE AMBULATING. POST BP: 174/87, HR 86, RR 20, PULSE OX 95% ON 2 L/M AT REST. RN NOTIFIED.
--- NOTE | 2019-12-13 14:27 | NUR ---
MEDICATED WITH PRN NORCO FOR CO A HEADACHE. WILL ASSESS EFFECTIVENESS.
--- NOTE | 2019-12-13 14:38 | NUR ---
Occupational Therapy evaluation offered this date. Patient reports that he has many other health problems that are needing addressed before therapy. He says that he will contact therapy if he wants an evaluation. OT reported that therapy would bed approaching him each day he is in the hospital. Patient reports that he prefers that that not happen. Leila Younger OTR/l
--- NOTE | 2019-12-13 14:42 | NUR ---
JEWEL BEARING GRINDER SPOKE WITH THE PATIENT VIA TELEPHONE. PATIENT HAS CONCERNS OVER HIS NEED FOR OXYGEN. JEWEL BEARING GRINDER EXPLAINED ONCE SCRIPT IS RECEIVED WILL BE SENDING TO DME COMPANIES TO SEE WHO CAN SUPPLY IT AND THE COST. PATIENT UNDERSTOOD.
--- NOTE | 2019-12-13 15:22 | NUR ---
ELECTRICAL SYSTEMS DRAFTER CONTACTED [facility] CEMENT[facility]. ELECTRICAL SYSTEMS DRAFTER CONTACTED SC RN HUYEN. SHE PROVIDED [phone]. THIS EXTENTION DOES NOT WORK. ELECTRICAL SYSTEMS DRAFTER CALLED BACK AND WAS TRANSFERRED TO THE PULMONARY DEPARTMENT. ELECTRICAL SYSTEMS DRAFTER LEFT MESSAGE ASKING FOR A RETURN CALL. WILL NEED THE PROPER DOCUMENTATION TO [facility].
--- NOTE | 2019-12-13 15:30 | NUR ---
CASTER INVESTMENT CASTING RECEIVED HOME OXYGEN SCRIPT. [employer] CASTING MADE A COPY AND PLACED THE SCRIPT ON THE PATIENTS CHART. AWAITING RETURN CALL FROM [place].
--- NOTE | 2019-12-13 15:49 | NUR ---
MESSAGE LEFT WITH ABOUT RUN OF VTACH.
[2019-12-13 16:00] VITALS: BP 164/85
--- NOTE | 2019-12-13 17:20 | NUR ---
NEW ORDERS RECEIVED FROM . PER TO GIVE METOPROLOL 20MG DAILY AND TO START FIRST DOSE NOW.
[2019-12-13 20:00] VITALS: BP 96/65
--- NOTE | 2019-12-13 20:30 | NUR ---
PATIENT VERY UPSET OVER DOCTORS NOT TALKING WITH HIM ABOUT RESULTS OF TESTS.
--- NOTE | 2019-12-13 22:13 | NUR ---
PATIENT WAS RESTING ALLOWED SOLUMEDROL BUT REFUSED ALL PO MEDICATIONS STATED "I'M JUST NOT IN A PILL TAKING MOOD."
--- NOTE | 2019-12-13 23:56 | NUR ---
24 HR chart check completed.
--- NOTE | 2019-12-14 01:44 | NUR ---
NORCO GIVEN PER ORDER FOR HEADACHE PAIN RATED "8". SEE MAR BOX LUNCH GIVEN PATIENT STATED HE'S HEAD WAS ACHING FROM NOT EATING DINNER.
--- NOTE | 2019-12-14 02:44 | NUR ---
NORCO EFFECTIVE FOR HEADACHE PAIN PER PT.
--- NOTE | 2019-12-14 04:47 | NUR ---
UP TO BATHROOM WILL REAPPLY CARDIAC LEADS WHEN OUT OF BATHROOM. NO ACUTE DISTRESS NOTED.
--- NOTE | 2019-12-14 06:00 | NUR ---
PATIENT DID NOT WANT AWAKEND. PATIENT STILL NEEDS TO HAVE WEIGHT DONE.
--- NOTE | 2019-12-14 07:00 | NUR ---
ARRIVED ON SHIFT, REPORT RECEIVED FROM OFFGOING NURSE, ASSUMED CARE OF PATIENT.
--- NOTE | 2019-12-14 07:21 | NUR ---
patient found on 4lnc, with spo2 of 99%, returned to 2lnc after breathing treatment.
--- NOTE | 2019-12-14 07:50 | NUR ---
INTRODUCED SELF TO PATIENT, BED IN LOW POSITION, WHEEL LOCKS ENGAGED, SIDE RAILS UP X 2 FOR TURNING AND REPOSITINING, CALL LIGHT WITHIN REACH, PATIENT REQUESTING TO SPEAK WITH PHYSICIAN, REQUESTS THAT A PHYSICIAN REVIEW ALL TEST RESULTS WITH HIM. ADVISED THAT QUE Romero NP IS ON FOR HIM TODAY AND I WOULD LET HER KNOW. WHITE BOARD UPDATED.
[2019-12-14 08:00] VITALS: BP 98/56
--- NOTE | 2019-12-14 08:23 | NUR ---
RECTANGULAR TANK COOPER CONTACTED [facility]. RECTANGULAR TANK COOPER LEFT MESSAGE FOR JAMESON DONALD ASKING FOR RETURN CALL. WILL AWAIT RETURN CALL AND CALL BACK IF NOT RETURNED.
--- NOTE | 2019-12-14 08:29 | NUR ---
FUNERAL HOME ASSISTANT LEFT MESSAGE FOR [facility] GLUED WOOD TESTER ASKING FOR RETURN CALL.
--- NOTE | 2019-12-14 08:59 | NUR ---
HORTICULTURAL SPECIALTY GROWER FIELD SPOKE TO THE PATIENT. HORTICULTURAL SPECIALTY GROWER FIELD EXPLAINED [employer] WOULD BE ABLE TO SUPPLY OXGYEN FOR HIM FOR $135/MONTHLY AND HE WOULD RECEIVE FORMS TO FILL OUT FOR NERI CARE TO HELP LOWER THE PATIENT. PATIENT REFUSED STATED HE WOULD WAIT ON THE [facility]. PATIENT STATED HE WOULD NOT PROVIDE THEM WITH ANY FINANICAL INFORMATION. PATIENT STATED "HOPEFULLY, THE [facility] WILL GET BACK TO ME BEFORE I ." HORTICULTURAL SPECIALTY GROWER FIELD WILL NOTIFY STACIE GREY.
--- NOTE | 2019-12-14 09:21 | NUR ---
CHERI RECEIVED CALL FROM [facility] SHE STATED SHE WILL BE FAXING THE FORMS TO BE FILLED OUT AND SIGNED BY DR. GUNDERSON. WILL AWAIT TO RECEIVE FAX.
--- NOTE | 2019-12-14 09:47 | NUR ---
CHERI RECEIVED HOME OXYGEN FORMS FROM THE [facility]. CHERI FAX FORM TO DR. GUNDERSON OFFICE TO BE SIGNED. SOLO TRUCK DRIVER WILL GO OVER THE FORMS WITH THE PATIENT AND HAVE HIM SIGN. ONCE FORM IS RECEIVED BACK FROM DR. GUNDERSON OFFICE. CHERI WILL RETURN THE FORMS TO THE HOME OXGYEN CLINIC THROUGH THE [facility].
--- NOTE | 2019-12-14 10:00 | NUR ---
DOWN TO PATIENTS ROOM, HE IS REQUESTING, NORCO AND STEROIDS WHEN HE DISCHARGES, ADVISED I WOULD LET QUE KNOW, BUT IT IS UNLIKELY THAT NORCO WOULD BE PERSCRIBED IT IS A NARCOTIC, HE VERSED HE DIDNT KNOW IT WAS. NOTIFIED QUE OF REQUEST, SHE VERSED SHE WILL SEE PATIENT LATER TODAY.
--- NOTE | 2019-12-14 10:22 | NUR ---
DIRECTOR OF MAINTENANCE SPOKE WITH THE PATIENT AT BEDSIDE. DIRECTOR OF MAINTENANCE EXPLAINED THE PAPERWORK FROM THE [facility] THAT WOULD NEED TO BE FILLED OUT AND SIGNED. PATIENT REFUSED DUE TO HAVING TO STATE HE WOULD BE WILLING TO QUIT SMOKING. PATIENT STATED HE IS NOT WILLING TO QUIT. DIRECTOR OF MAINTENANCE EXPLAINED TO THE PATIENT ABOUT [employer]ALTH[employer] AND THE COST OF $135 AND THEN WOULD NEED TO COMPLETE NERI CARE FORMS. PATIENT REFUSED STATED HE CANNOT AFFORD IT AND NO FAMILY TO ASSIST HIM. PATIENT STATED IF HE COULD AFFORD THE $135 HE WOULD JUST PAY THE $145 FOR HIS MEDICARE PART B. DIRECTOR OF MAINTENANCE EXPLAINED REMAINING OPTION WOULD BE TO GO TO A SNF TO BE WEANED OFF THE OXGYEN. PATIENT STATED THIS DIRECTOR OF MAINTENANCE WAS "INSULTING" HIM. DIRECTOR OF MAINTENANCE EXPLAINED THIS OPTION WAS NOT MEANT AN INSULT AND THAT IT IS A REALISTIC OPTION. PATIENT REFUSED. PATIENT THEN ASKED FOR THIS DIRECTOR OF MAINTENANCE TO GET HIS NURSE SO SHE COULD "GET ME OUT OF HERE". DIRECTOR OF MAINTENANCE SPOKE WITH STEPHANIE KRISHNAMURTHY SHE STATED SHE WOULD BE ON HER WAY TO SEE THIS PATIENT. DIRECTOR OF MAINTENANCE ALSO INFORMED FIRST OFFICER AND FLIGHT INSTRUCTOR QUE. DIRECTOR OF MAINTENANCE ALSO DISCUSSED THIS IN THE MORNING DISCHARGE PLANNING MEETING, EVERYONE IS AWARE.
[2019-12-14] MEDS ORDERED: OMNICEF300 MG PO (12:45)
[2019-12-14] MEDS ORDERED: ZITHROMAX500 MG PO (12:45)
[2019-12-14] MEDS ORDERED: HYDROCODONE-AC1 EAC1 PO ×3 (12:47→12:51)
[2019-12-14] MEDS ORDERED: LOPRESSOR25 MG PO (12:47)
[2019-12-14] MEDS ORDERED: PREDNISONE10 MG PO (12:54)
--- NOTE | 2019-12-14 14:15 | NUR ---
Discharge instructions reviewed with patient/family. Patient receptive and verbalizes understanding. Follow-up care arranged. Written instructions given to patient/family, IV REMOVED, TELEMETRY ACCOUNTED FOR, TAKEN OUT VIA W/C BY YESSY WESTON
== END 2019-12-14 14:15 | disposition home or self-care (01) | DRG 871 ==
LOC: ED 07:56 → EDHOLD 09:18 → 4E 09:18
PROVIDERS: Emergency Medicine; Internal Medicine Critical Care Medicine; Registered Nurse; ADMIT Student in an Organized Health Care Education/Training Program; ATTEND Student in an Organized Health Care Education/Training Program
PROC: 5A09357 Assistance with Respiratory Ventilation, Less than 24 Consecutive Hours, Continuous Positive Airway Pressure (ICD-10-PCS; principal; 2019-12-11)
PROC: 3E073KZ Introduction of Other Diagnostic Substance into Coronary Artery, Percutaneous Approach (ICD-10-PCS; 2019-12-13)
PROC: 4A02XM4 Measurement of Cardiac Total Activity, External Approach (ICD-10-PCS; 2019-12-13)
DX: A41.9 Sepsis, unspecified organism (principal); J18.9 Pneumonia, unspecified organism; J96.02 Acute respiratory failure with hypercapnia; I50.33 Acute on chronic diastolic (congestive) heart failure; E44.1 Mild protein-calorie malnutrition; D68.59 Other primary thrombophilia; J96.12 Chronic respiratory failure with hypercapnia; J44.0 Chronic obstructive pulmonary disease with (acute) lower respiratory infection; J44.1 Chronic obstructive pulmonary disease with (acute) exacerbation; N40.0 Benign prostatic hyperplasia without lower urinary tract symptoms; I25.10 Atherosclerotic heart disease of native coronary artery without angina pectoris; G89.29 Other chronic pain; M54.9 Dorsalgia, unspecified; E11.40 Type 2 diabetes mellitus with diabetic neuropathy, unspecified; R65.20 Severe sepsis without septic shock; F17.219 Nicotine dependence, cigarettes, with unspecified nicotine-induced disorders; E11.65 Type 2 diabetes mellitus with hyperglycemia; T38.0X5A Adverse effect of glucocorticoids and synthetic analogues, initial encounter; I11.0 Hypertensive heart disease with heart failure; I48.91 Unspecified atrial fibrillation; J20.9 Acute bronchitis, unspecified; I25.2 Old myocardial infarction; Z80.3 Family history of malignant neoplasm of breast; Z98.42 Cataract extraction status, left eye; Z98.41 Cataract extraction status, right eye; Z91.19 Patient's noncompliance with other medical treatment and regimen; Z91.14 Patient's other noncompliance with medication regimen; Y92.89 Other specified places as the place of occurrence of the external cause; Z79.01 Long term (current) use of anticoagulants; Z68.27 Body mass index [BMI] 27.0-27.9, adult